=== PATIENT | male | born 1995 | race Caucasian/White ===

== ENCOUNTER 2023-09-22 19:39 | Emergency (ER) | payer OTHER, SELFPAY ==
[2023-09-22 19:40] VITALS: BP 149/68; PULSE 55; RESP 18; TEMP 36.8; O2SAT 100; BMI 29.2
--- NOTE | 2023-09-22 20:15 | RAD_ITS ---
INDICATION: Back pain EXAMINATION/TECHNIQUE: X-RAY - XR Spine Lumbar 2 or 3 Views COMPARISON: No relevant prior comparison study available FINDINGS: VERTEBRAE: Preserved vertebral body height. No fracture. No spondylolisthesis. Preservation of the normal lumbar lordosis. No significant facet arthropathy. DISCS: Disc spaces are maintained. INCLUDED ABDOMEN: Included bowel gas pattern is non-obstructive. RAD/Lumbar Spine 2 or 3 Views IMPRESSION: No evidence of lumbar spinal fracture or spondylolisthesis. Electronically Signed: Opal Valerio MD at 20:56 EST ,
--- NOTE | 2023-09-22 20:15 | EDS_ITS ---
HPI History of Present Illness Chief Complaint: Back Narrative Narrative: 28-year-old male who denies significant past medical history presents with back pain back in June, almost 3 months ago. He states that before he would have twinges of pain, then had a period of a few days where he had back pain, but that was more to the left of his spine. Since then, he has had a strange numbness of his bilateral feet that has been intermittent. He states that 1 step before them being numb. However, it is not occurring now. He denies any back pain. No fevers or chills, no nausea or vomiting, no saddle anesthesia, but states that he lost control of his bladder twice today. When asked what he meant by this, he states it was as if a small stream had come out twice today. While he was waiting in triage, he has been able to hold his urine. He states it is not as if he lost control and did not have a sensation that he had urinated. He denies any problems with his bowels. He and his went to urgent care, and were told that they should come to the emergency department w ith concern for cauda equina. [facility] Medical History Hypercholesteremia Home Medications NK 09/22/23 [History Last Taken Unknown] Allergy/AdvReac Type Severity Reaction Status Date / Time No Known Allergies Allergy Verified 09/22/23 19:40 Social History Smoking Status: Never smoker ROS ROS ED ROS Narrative Constitutional: No fever, no chills. HEENT: No sore throat. No neck pain. No loss of vision. No rhinorrhea. Cardiovascular: No chest pain. No palpitations. No pedal edema. Respiratory: No cough, no shortness of breath. Abdominal: No abdominal pain. No nausea. No vomiting. Genitourinary: No dysuria. No hematuria. Musculoskeletal: No myalgias. No arthralgias. No back pain currently. Neurologic: No headaches. No dizziness. No lightheadedness. Intermittent numbness of both feet, not present currently. No saddle anesthesia. Skin: No rash. No change in color. Psychiatric: No depression. No anxiety. EXAM Physical Exam Narrative Exam Narrative: Afebrile. Vital signs noted. HEENT: Normocephalic. Atraumatic. PERRL, EOMI. Neck soft and supple. No point tenderness or step off. Cardiovascular: Regular rate and rhythm. No murmurs, rubs, or gallops appreciated. Respiratory: No tachypnea. Lungs clear to auscultation bilaterally. Gastrointestinal: Abdomen soft, nontender, with normoactive bowel sounds. No rebound or guarding. Neurological: Awake. Alert. Nonfocal, nonlateralizing. Ambulatory in ED. Able to transfer without difficulty. Straight leg raising negative bilaterally. DTRs equal and symmetric. EHL intact bilaterally. Skin: No rash. Normal color. No pallor. Musculoskeletal: No pedal edema. Full range of motion extremities. Able to squat and stand without difficulty. Const Vital Signs: 09/22/23 19:40 09/22/23 20:47 Temperature 98.2 F 98.5 F Temperature Source Temporal Pulse Rate 55 L 83 Respiratory Rate 18 16 Blood Pressure 149/68 H 143/66 H Blood Pressure Mean 95 91 Pulse Ox 100 99 Oxygen Delivery Method Room Air MDM MDM MDM Narrative Medical decision making narrative: There are no signs of cauda equina currently. He is not having back pain or paresthesias of his feet. I do feel that his small amount of loss of bladder control may have been slight leakage from overflow incontinence. Regardless, he is symptom-free currently. X-rays of the lumbar spine and 3 views were obtained and interpreted by myself independently which show no evidence of an acute fracture. I reviewed the radiology report which confirms my independent interpretation. Urinalysis is negative for infection I do not feel antibiotics are indicated. There is no glucose so I have no concern for diabetic neuropathy. I feel that he can be discharged to have outpatient testing done by primary care provider. He and his were reassured. I do not feel he requires an emergent MRI as well. He is able to ambulate without difficulty. Disposition is discharged home in stable condition. History & Record Review Additional record(s) reviewed:: No prior records Lab Data Attestation: I reviewed the patient's lab results. Labs: Laboratory Results - last 24 hr 09/22/23 20:11 Urine Color Yellow Urine Clarity Clear Urine pH 6.5 Ur Specific [place] 1.010 Urine Protein Negative Urine Glucose (UA) Normal Urine Ketones Negative Urine Occult Blood Negative Urine Nitrite Negative Urine Bilirubin Negative Urine Urobilinogen Normal Ur Leukocyte Esterase Negative Urine RBC 0 SEEN Urine WBC 0 SEEN Ur Squamous Epith Cells 0 SEEN Urine Bacteria 0 SEEN Urine Mucus 0 SEEN Radiography Diagnostic Testing: Clinical Impression(s) from Imaging Studies Lumbar Spine X-Ray 09/22/23 20:15 IMPRESSION: No evidence of lumbar spinal fracture or spondylolisthesis. Electronically Signed: Opal Valerio MD at 20:56 EST , Discharge Plan Triage Chief Complaint: Back ED Provider: Hernan Lockwood Dx/Rx/DC Orders Clinical Impression: Back pain, Paresthesia of both feet Instructions: ED Back Pain (Acute or Chronic), ED Screening Exam Medical Non urgent, ED Paraesthesias Prescriptions: No Action NK Primary Care Provider: Care Physician,No Primary Referrals: Shaheen Crawford MD [Med Staff - Active Staff] - As Needed NOT,DEFINED [Non-Staff] - Disposition Disposition: Home, Self Care Discharge Date/Time: 09/22/23 20:51
[2023-09-22 20:21] LABS: Bacteria 0 SEEN /hpf (None Seen); Mucous, Urine 0 SEEN /hpf (<or=2+); Red Blood Cells-Urine 0 SEEN /hpf (0-5); Squamous Epithelial Cells - UA 0 SEEN /hpf (0-5); White Blood Cells 0 SEEN /hpf (0-5)
[2023-09-22 20:22] LABS: Color, Urine Yellow (Yellow); Glucose, Dipstick Normal (Normal); Ketone-Dipstick Negative (Negative); Leukocyte Esterase-Dipstick Negative /ul (Negative); Nitrite-Dipstick Negative (Negative); Occult Blood-Urine Negative /ul (Negative); Protein-Dipstick Negative (Negative); Urine Bilirubin Dipstick Negative (Negative); Urine Clarity Clear (Clear); Urine Urobilinogen Normal (Normal); Urine pH 6.5 (5.0 - 8.0)
[2023-09-22 20:47] VITALS: BP 143/66; PULSE 83; RESP 16; TEMP 36.9; O2SAT 99
== END 2023-09-22 20:51 | disposition home or self-care (01) ==
PROVIDERS: Emergency Provider Emergency Medicine; Visit Provider Emergency Medicine
DX: M54.9 Dorsalgia, unspecified (principal); R20.2 Paresthesia of skin
CPT/HCPCS: 72100; 81001; 99282

== ENCOUNTER → 2025-02-12 | Outpatient (CLI) | payer BC, SELFPAY ==
--- OUTSIDE RECORDS SUMMARY | 2025-02-12 08:48 | XMS RPT_ITS | CCD ---
Author Organization [facility] Care Team Providers Care Edge Bander Hand Name Role Phone MAST POKER PROP PLAYER-STEEPING PRESS TENDER, KAILYN Primary Care Physician [phone] Mast STEEPING PRESS TENDER, Kailyn Primary Care Provider [phone] Mast STEEPING PRESS TENDER, Kailyn Primary Care Provider [phone] MAST POKER PROP PLAYER-STEEPING PRESS TENDER, KAILYN Primary Care Unavailleo PLZAA MD, DR SHOSHANA Bettencourt Attending Unavailable MAST POKER PROP PLAYER-STEEPING PRESS TENDER, KAILYN Primary Care Unavailabl e MAST POKER PROP PLAYER-STEEPING PRESS TENDER, KAILYN Attending Unavailabl e MAST POKER PROP PLAYER-STEEPING PRESS TENDER, KAILYN Primary Care Unavailabl ramses PLAZA MD, DR SHOSHANA Bettencourt Attending Unavailable MAST POKER PROP PLAYER-STEEPING PRESS TENDER, KAILYN Primary Care Unavailabl e JENNIFER PATE, DR MALIK Attending Unavailable MELA MARTIN, DR SHOSHANA Bettencourt Attending Unavailable MAST POKER PROP PLAYER-STEEPING PRESS TENDER, KAILYN Primary Care Unavailabl e MAST POKER PROP PLAYER-STEEPING PRESS TENDER, KAILYN Primary Care Unavailabl e MAST POKER PROP PLAYER-STEEPING PRESS TENDER, KAILYN Attending Unavailabl e RCYSTAL PATE, DR BAMBI Phan Attending Unavailabl e MAST POKER PROP PLAYER-STEEPING PRESS TENDER, KAILYN Primary Care Unavailabl e MAST POKER PROP PLAYER-STEEPING PRESS TENDER, KAILYN Primary Care Unavailabl e MAST POKER PROP PLAYER-STEEPING PRESS TENDER, KAILYN Attending Unavailabl e MAST, KAILYN Primary Care Unavailable MAST, KAILYN Primary Care Unavailable CHASTITY CRUZ Referring Unavailable [place] ALFARO Referring Unavail able MAST, KAILYN Primary Care Unavailable CHASTITY CRUZ Attending Unavailable MAST, KAILYN Primary Care Unavailable MAST, KAILYN Primary Care Unavailable MAST, KAILYN Primary Care Unavailable CHASTITY CRUZ Referring Unavailable MAST, KAILYN Primary Care Unavailable CHASTITY CRUZ Attending Unavailable MAST, KAILYN Primary Care Unavailable CHASTITY CRUZ Referring Unavailable MAST POKER PROP PLAYER-STEEPING PRESS TENDER, KAILYN Attending Unavailabl e MAST POKER PROP PLAYER-STEEPING PRESS TENDER, KAILYN Primary Care Unavailabl e Jeison Gibbs Attending Unavailable Care Physician, No Primary Primary Care Unava ilable Medications Current Medications Medication Drug Class(es) Dates Sig (Normalized) Sig (Original) [id number] actuat albuterol 0.09 mg/actuat metered dose inhaler (1 source) beta2-Adrenergic Agonist Start: 09-30-2024 take 2 puff(s) by inhalation every four hours as needed for wheezing albuterol HFA (PROVENTIL HFA, VENTOLIN HFA) 90 mcg/actuation inhaler Indications: Viral bronchitis Inhale 2 Puffs as instructed every 4 hours as needed for wheezing/shortnes s of breath. 1 Each 09/30/2024 Active Start: 09-30-2024 take 2 puff(s) by in halation every four hours as needed for wheezing albuterol HFA (PROVENTIL HFA, VENTOLIN HFA) 90 mcg/actuation inhaler Indications: Viral bronchitis Inhale 2 Puffs as instructed every 4 hours as needed for wheezing/shortness of breath. 1 Each 09/30/2024 Active Allergy Relief (1 source) Start: 05-24-2024 take 1 mg by mouth once daily Allergy Relief mg =, Oral, qDay, 0 Refill(s) Start Date: 05/24/24 Status: Ordered Repeat number: 1 B-12 1000 mcg oral tablet (1 source) Start: 10-28-2023 take 1 ug by mouth once daily B-12 1000 mcg oral tablet mcg = tab(s), Oral, qDay, 0 Refill(s) Start Date: 10/28/23 Status: Ordered brompheniramine maleate 0.4 mg/ml / dextromethorphan hydrobromide 2 mg/ml / pseudoephedrine hydrochloride 6 mg/ml oral solution (2 sources) alpha-Adrenergic Agonist, Uncompetitive M-wyjjus-X-asparta te Receptor Antagonist, Sigma-1 Agonist Start: 08-23-2024 take 10 mL by mouth every six hours as needed Brompheniramine- Pseudoeph-DM (BROMFED DM) 2-30-10 mg/5 mL syrup Take 10 mL by mouth four times a day as needed. 200 mL 08/23/2024 Active Folate Forte (1 source) Start: 10-28-2023 Folate Forte Oral, qDay, 0 Refill(s) Start Date: 10/28/23 Status: Ordered Inhalational Spacing Device (1 source) Start: 09-30-2024 End: 09-30-2024 Inhalational Spacing Device Indications: Viral bronchitis 1 Device one time only for 1 dose. 1 Each 09/30/2024 09/30/2024 Active predniSONE 10 mg oral tablet (1 source) Start: 09-30-2024 End: 10-09-2024 predniSONE (DELTASONE) 10 mg tablet Indications: Viral bronchitis Take 4 tabs daily for 3 days, then 2 tabs daily for 3 days, then 1 tab daily for 3 days with food. 21 tablet 09/30/2024 10/09/2024 Active Symbicort 80 mcg-4.5 mcg/inh Inhaler (1 source) Start: 11-09-2024 take 1 dose by inhalation twice daily Symbicort 80 mcg-4.5 mcg/inh Inhaler Dose = 2 puff(s), Inhalation, BID, # 6.9 gram(s), 0 Refill(s), Pharmacy: [facility] #[id number], 178, cm, 10/15/24 7:39:00 EDT, Height, kg, 10/15/24 7:39:00 EDT, Dosing Weight Start Date: 11/09/24 Status: Ordered Quantity: 6.9 Unit: g Repeat number: 1 Completed/Discontinued Medications Medication Drug Class(es) Dates Sig (Normalized) Sig (Original) Albuterol (Eqv-Proventil HFA) 90 mcg/inh inhalation aerosol (1 source) Start: 10-15-2024 End: 10-22-2024 take 2 doses by inhalation every six hours as needed for wheezing Albuterol (Eqv-Proventil HFA) 90 mcg/inh inhalation aerosol Dose : 180 mcg = 2 inh, Inhalation, q6hr, PRN as needed for shortness of breath or wheezing, # 6.7 gram(s), 0 Refill(s), Pharmacy: [facility] #[id number], 178, cm, 10/15/24 7:39:00 EDT, Height, kg, 10/15/24 7:39:00 EDT, Dosing Weight Start Date: 10/15/24 Stop Date: 10/22/24 Status: Ordered Quantity: 6.7 Unit: g Repeat number: 1 iv contrast (will be provided with radiology test) (1 source) Start: 10-31-2023 End: 11-01-2023 inject 1 dose intravenously once iv contrast (will be provided with radiology test) Indications: Facial weakness , Tingling MRI Brain Inject, intravenously, once for 1 dose.No IV access, insert saline lock prior to beginning of sedation, infusion, injection of imaging exam.Discontinue saline lock post exam. If Pt. has a central line or IVAD, may access for administration according to line specific nursing protocol.Once exam is complete flush line and de-access according to line specific nursing protocol in the MR contrast administration guidelines link 1 Each 0 10/31/2023 11/01/2023 Comment on above: MRI Brain Inject, intravenously, once fo r 1 dose.No IV access, insert saline lock prior to beginning of sedation, infusion, injection of imaging exam.Discontinue saline lock post exam. If Pt. has a central line or IVAD, may access for administration according to line specific nursing protocol.Once exam is complete flush line and de-access according to line specific nursing protocol in the MR contrast administration guidelines link Problems Active Problems Problem Classification Problem Date Documented Da te Episodic/Chronic Abdominal pain (9 sources) Right upper quadrant pain; Translations: [Unspecified abdominal pain] Onset: 11-27-2023 10-28-2023 Episodic Acute bronchitis (1 source) Viral bronchitis; Translations: [Acute bronchitis due to other specified organisms] 09-30-2024 Episodic Asthma (1 source) Unspecified asthma, uncomplicated; Translations: [Unspecified asthma, uncomplicated] Onset: 02-07-2025 Chronic Cardiac dysrhythmias (9 sources) Bradycardia 10-14-2023 Episodic Conduction disorders (1 source) Right bundle branch block 10-28-2023 Chronic Disorders of lipid metabolism (11 sources) Hyperlipidemia; Translations: [Hyperlipidemia, unspecified] Onset: 10-14-2023 10-14-2023 Chronic Gastrointestinal hemorrhage (1 source) Hematochezia; Translations: [Melena] 11-17-2023 Episodic Genitourinary symptoms and ill-defined conditions (2 sources) Dysuria; Translations: [Dysuria] Onset: 11-27-2023 Episodic Hemorrhoids (1 source) Hemorrhoids; Translations: [Unspecified hemorrhoids] 11-17-2023 Episodic Intestinal infection (11 sources) Food poisoning; Translations: [Bacterial foodborne intoxication, unspecified] Onset: 10-14-2023 10-14-2023 Episodic Malaise and fatigue (11 sources) Fatigue; Translations: [Other fatigue] Onset: 10-14-2023 10-14-2023 Episodic Other and ill-defined heart disease (6 sources) Right ventricular hypertrophy 11-14-2023 Chronic Other connective tissue disease (12 sources) Weakness of face muscles; Translations: [Facial weakness] 10-14-2023 Episodic Other infections; including parasitic (1 source) Post-infectious disorder 10-15-2024 Chronic Other injuries and conditions due to external causes (1 source) Unspecified foreign body in esophagus causing other injury, initial encounter; Translations: [Unspecified foreign body in esophagus causing other injury, initial encounter] Onset: 01-25-2023 Episodic Other male genital disorders (1 source) Pain in penis; Translations: [Other specified disorders of penis] 11-17-2023 Chronic Other nervous system disorders (2 sources) Demyelinating disease of central nervous system; Translations: [Demyelinating disease of central nervous system, unspecified] 11-02-2023 Chronic Other nervous system disorders (1 source) Demyelinating disease of central nervous system, unspecified; Translations: [Demyelinating disease of central nervous system (HCC)] Onset: 11-27-2023 Chronic Other nervous system disorders (9 sources) Numbness 10-14-2023 Episodic Other nervous system disorders (11 sources) Paresthesia; Translations: [Paresthesia of skin] Onset: 10-23-2023 Episodic Other screening for suspected conditions (not mental disorders or infectious disease) (2 sources) Encounter for screening for lipoid disorders; Translations: [Encounter for screening for diabetes mellitus] Onset: 02-07-2025 Episodic Other upper respiratory infections (3 sources) Sore throat symptom; Translations: [Acute pharyngitis, unspecified] 08-23-2024 Episodic Transient cerebral ischemia (3 sources) Cerebral ischemia; Translations: [Transient cerebral ischemic attack, unspecified] Onset: 11-27-2023 10-31-2023 Chronic Unclassified (16 sources) Patient encounter status 10-14-2023 Past or Other Problems Problem Classification Problem Date Documented Da te Episodic/Chronic Nonspecific chest pain (3 sources) Tight chest; Translations: [Other chest pain] Onset: 01-02-2024 10-31-2023 Episodic Other connective tissue disease (3 sources) Facial weakness; Translations: [Facial weakness] Onset: 10-14-2023 Episodic Other nervous system disorders (3 sources) Paresthesia of skin; Translations: [Paresthesia of skin] Onset: 10-28-2023 Episodic Other nervous system disorders (2 sources) Anesthesia of skin; Translations: [Anesthesia of skin] Onset: 10-14-2023 Episodic Results Test Name Value Interpretation Reference Range Facility CT THORAX W/O CONTRASTon CT THORAX W/O CONTRAST ADDENDUM ADDENDUM: I have been asked to comment on absent pericardium. This is difficult on noncontrast CT. The pericardium is difficult to identify well at the region of the cardiac apex and left heart border. Cardiac chamber assessment is difficult although there does appear to be some bulging at the left lateral cardiac margin. Pericardium anteriorly and toward the right does appear visible. 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 This should be further evaluated more optimally with cardiac MRI. Interpreted by: Arley Salgado MD Preliminary Report By: Arley Salgado MD Electronically signed By Arley Salgado MD Dictated Date: 11/12/2024 10:13:13 AM Prelim Date: 11/12/2024 10:20:08 AM Sign Date: 11/12/2024 10:20:08 AM Ordering Provider: SHOSHANA PLAZA ORIGINAL EXAMINATION: CT OF THE CHEST WITHOUT CONTRAST 02/03/2024 9:53 am TECHNIQUE: CT of the chest was performed without the administration of intravenous contrast. Multiplanar reformatted images are provided for review. Automated exposure control, iterative reconstruction, and/or weight based adjustment of the mA/kV was utilized to reduce the radiation dose to as low as reasonably achievable. COMPARISON: None. HISTORY: ORDERING SYSTEM PROVIDED HISTORY: Reason for Exam: cardiomyopathy FINDINGS: No acute osseous abnormality is visible. No acute osseous abnormality. 4 mm nodule is evident within the left lower lobe. No other nodule is identified and there is no focal consolidation. No pleural fluid seen. There is pre-vascular abnormal somewhat rounded soft tissue present measuring 2.5 cm in size. This is presumably a thymic abnormality. No calcification is evident within the lesion. No gross mediastinal adenopathy within the constraints of a noncontrast exam. No additional contributory abnormality seen. IMPRESSION: 1. Pre-vascular/thymic lesion. Nodular hyperplasia and thymoma are considerations. The precise nature of the abnormality is uncertain. Neoplasm is certainly not excluded. 2. Small left lower lobe pulmonary nodule of uncertain significance in a patient of this age. Follow-up as clinically appropriate. Interpreted by: Arley Salgado MD Preliminary Report By: Arley Salgado MD Electronically signed By Arley Salgado MD Dictated Date: 02/03/2024 1:45:34 PM Prelim Date: 02/03/2024 1:49:14 PM Sign Date: 02/03/2024 1:49:14 PM Ordering Provider: SHOSHANA Sanz [facility] CNOVon 09-30-2024 CNOV Office Visit ([facility] ) BERYL LINCOLN ([id number]) 1995 Date Time Provider Department 09/30/24 7:45 AM TAMMY LEMUS [facility] During your visit today, we recorded the following information about you: Temperature Pulse Respiration Blood pressure 97.3 degrees 55/minute 18/minute 121/77 Weight 94.2 kg Tammy Lemus APRN.[facility] 09/30/2024 8:21 AM Signed [facility] Subjective Beryl Lincoln is a 29 year old male. Cough Associated symptoms include shortness of breath. Pertinent negatives include no chest pain, no chills, no ear pain, no headaches, no sore throat and no wheezing. Beryl Lincoln is a 29 year old male who presents with a cough, chest congestion, and feeling short of breath for the past 3 days. He was diagnosed with the flu and had a high fever and chills for one day. He has felt better but cough persists and chest feels tight. He has taken tylenol and ibuprofen at home. Review of Systems Constitutional: Negative for chills, fatigue and fever. HENT: Negative for ear discharge, ear pain, sinus pain and sore throat. Respiratory: Positive for cough and shortness of breath. Negative for wheezing. Cardiovascular: Negative for chest pain. Neurological: Negative for headaches. Objective BP 121/77 Pulse (!) 55 Temp 36.3 ?C (97.3 ?F) Resp 18 Wt 94.2 kg (207 lb 10.8 oz) SpO2 97% BMI 29.80 kg/m? No past medical history on file. No past surgical history on file. ALLERGIES Patient has no known allergies. MEDICATIONS predniSONE (DELTASONE) 10 mg tablet Take 4 tabs daily for 3 days, then 2 tabs daily for 3 days, then 1 tab daily for 3 days with food. albuterol HFA (PROVENTIL HFA, VENTOLIN HFA) 90 mcg/actuation inhaler Inhale 2 Puffs as instructed every 4 hours as needed for wheezing/shortness of breath. Inhalational Spacing Device 1 Device one time only for 1 dose. Brompheniramine-Pseudoe ph-DM (BROMFED DM) 2-30-10 mg/5 mL syrup Take 10 mL by mouth four times a day as needed. (Patient not taking: Reported on 09/30/2024) No family history on file. Social History Tobacco Use Smoking status: Never Smokeless tobacco: Never Substance Use Topics Drug use: Never Physical Exam Vitals and nursing note reviewed. Constitutional: General: He is not in acute distress. Appearance: Normal appearance. He is not ill-appearing. HENT: Right Ear: Tympanic membrane, ear canal and external ear normal. Left Ear: Tympanic membrane, ear canal and external ear normal. Nose: Nose normal. Mouth/Throat: Mouth: Mucous membranes are moist. Pharynx: Oropharynx is clear. No posterior oropharyngeal erythema. Cardiovascular: Rate and Rhythm: Normal rate and regular rhythm. Heart sounds: Normal heart sounds. Pulmonary: Effort: Pulmonary effort is normal. No respiratory distress. Breath sounds: Wheezing (few, scattered) present. No rales. Skin: General: Skin is warm and dry. Findings: No erythema or rash. Neurological: Mental Status: He is alert. Assessment and Plan Differential Diagnoses - bronchitis is more likely for the following reason(s): suggested by HANDP - pneumonia is less likely for the following reason(s): HANDP not suggestive Additional Tests or Interventions The following testing was considered but ultimately not selected after discussion with patient/family: xray The following medication(s) were considered but not ordered: antibiotics Disposition The patient was discharged. OTC Medications were advised: Procedures ASSESSMENT/PLAN: 1. Viral bronchitis - ICD9: 466.0, ICD10: J20.8 - PREDNISONE 10 MG TABLET - ALBUTEROL SULFATE HFA 90 MCG/ACTUATION AEROSOL INHALER - INHALATIONAL SPACING DEVICE - continue tylenol/ibuprofen as needed. - Follow-up with your PCP in 3-5 days if symptoms have not improved or sooner if symptoms worsen - Discussed red flags and need for immediate medical evaluation if any occur. - Discussed supportive care treatment with fluids, rest and analgesia. - Discussed expected course of illness Tammy Lemus APRN.Tammy Bella APRN.CNP 09/30/2024 8:21 AM Signed ASSESSMENT/PLAN: 1. Viral bronchitis - ICD9: 466.0, ICD10: J20.8 - PREDNISONE 10 MG TABLET - ALBUTEROL SULFATE HFA 90 MCG/ACTUATION AEROSOL INHALER - INHALATIONAL SPACING DEVICE - continue tylenol/ibuprofen as needed. - Follow-up with your PCP in 3-5 days if symptoms have not improved or sooner if symptoms worsen - Discussed red flags and need for immediate medical evaluation if any occur. - Discussed supportive care treatment with fluids, rest and analgesia. - Discussed expected course of illness Tammy Lemus APRN.CNP [facility] [address] [place], [place] [address] Emergency Department Diagnosis: Assessment ACUTE BRONCHITIS: You have acute bronchitis. This (more content not included)... Normal [facility] CNOVon 08-23-2024 CNOV Office Visit ([facility] ) BERYL LINCOLN ([id number]) 1995 M Date Time Provider Department 08/23/24 9:15 AM RAYSHAWN VEGAS [facility] During your visit today, we recorded the following information about you: Temperature Pulse Respiration Blood pressure 99.8 degrees 117/minute 16/minute 112/76 Weight 94.4 kg Rayshawn Vegas PA 08/23/2024 9:39 AM Signed This note was created using Clarity. Car Lincoln is a 29 year old male. HPI 29-year-old male presents for sore throat, congestion, cough, chills, fever x 3 days. Patient states he has not actually taken his temperature at home, but has felt feverish. He has had a productive cough, nasal congestion, sore throat for the past 3 days. No vomiting or diarrhea. Still able to eat and drink. Has used cough drops and ibuprofen for symptom treatment. He took ibuprofen last this morning. No sick contacts that he is aware of. No other complaint. History reviewed. No pertinent past medical history. No past surgical history on file. ALLERGIES Patient has no known allergies. MEDICATIONS No prescriptions on file. No family history on file. Social History Tobacco Use Smoking status: Never Smokeless tobacco: Never Substance Use Topics Drug use: Never Review of Systems Constitutional: Positive for chills and fever. HENT: Positive for congestion and sore throat. Respiratory: Positive for cough. Negative for shortness of breath. Gastrointestinal: Negative for diarrhea and vomiting. Objective BP 112/76 Pulse 117 Temp 37.7 ?C (99.8 ?F) (Tympanic) Resp 16 Wt 94.4 kg (208 lb 1.8 oz) SpO2 95% BMI 29.86 kg/m? Physical Exam Vitals and nursing note reviewed. Constitutional: General: He is not in acute distress. Appearance: Normal appearance. He is not toxic-appearing. HENT: Right Ear: Tympanic membrane and ear canal normal. Left Ear: Tympanic membrane and ear canal normal. Nose: Congestion present. Mouth/Throat: Mouth: Mucous membranes are moist. Pharynx: Posterior oropharyngeal erythema present. Tonsils: 2+ on the right. 2+ on the left. Eyes: Conjunctiva/sclera: Conjunctivae normal. Cardiovascular: Rate and Rhythm: Normal rate and regular rhythm. Pulmonary: Effort: Pulmonary effort is normal. Breath sounds: Normal breath sounds. No wheezing, rhonchi or rales. Skin: General: Skin is warm and dry. Neurological: Mental Status: He is alert. Assessment and Plan ASSESSMENT/PLAN: 1. Sore throat - ICD9: 462, ICD10: J02.9 (primary diagnosis) - suspect viral - Group A strep molecular testing negative - Discussed supportive care treatment with fluids, rest and analgesia. - The patient may also use warm salt water gargles, throat lozenges and/or OTC throat spray as needed. - STREP A MOLECULAR (POC) 2. URI, acute - ICD9: 465.9, ICD10: J06.9 - Discussed viral etiology and rationale for treatment. - Symptomatic treatment with prn analgesia - Supportive care with fluids and rest - RX bromfed - declines viral testing Diagnosis and treatment plan were discussed and questions were answered to the patient's satisfaction. Pt acknowledged understanding of concepts and follow up plan. Specific signs and symptoms that would indicate the need for higher level of care were discussed in detail warranting prompt ER evaluation. PAMELLA Potter Allergies As of Date: 08/23/2024 (No Known Allergies) Date Reviewed: 08/23/2024 Reviewed by: Suzan Dang LPN - Fully Assessed Reason for Visit: Cough [28] Cmt: Cough, SAMANO, ST and congestion x 3 days Primary Visit Diagnosis:Sore throat [J02.9] Other Visit Diagnosis:URI, acute [J06.9] Order(s):STREP A MOLECULAR (POC) [2839511] Order #: [id number]. #:[id number] Brompheniramine-Pseudoe ph-DM (BROMFED DM) 2-30-10 mg/5 mL syrupTake 10 mL by mouth four times a day as needed.Disp: 200 mLRfl: 0 Prescriptions as of 08/23/2024 - Brompheniramine-Pseudoe ph-DM (BROMFED DM) 2-30-10 mg/5 mL syrup Take 10 mL by mouth four times a day as needed. Problem List As Of Date: 08/23/2024 (None) Prescriptions ordered this encounter Disp Refills Start End BROMPHENIRAMINE-PSEUDOE PHEDRINE-DM 2* 200 * 0 08/23/2024 Route: ORAL Sig: Take 10 mL by mouth four times a day as needed. Letter Text Encounter Status:Closed by ELIANE VEGASGILMERSHA Mccollum on 08/23/24 Normal [facility] STREP A MOLECULAR (POC)on Procedural Control Valid [facility] Strep A (POCT) Negative Negative [facility] CARDIAC MORPHOLOGY AND F [facility] W+W/O CONTon 01-18-2024 MRI CARDIAC MORPHOLOGY AND FUNC W+W/O CONT ORIGINAL Patient Name: Beryl Lincoln Medical Record Number: : Weight: lbs BSA: Protocols: T2w/T1w axial MARIO, Cine SSFP (FIESTA), T2 STIR, LGE Contrast: 34 cc Multihance Findings: Measurement Value Reference Range Left Ventricle LV Max wall thickness 0.9 cm (0.7-1.1 cm) (Anterior Wall) LVEDV: 265mL LVESV: 122mL LVEF: 54% RVEDV: 290mL RVEDV/BSA: 139ml/m2 RVEF: 53% Vessels Ascending Aorta 2.6 cm (1.9-3.7 cm) Descending Aorta 1.9 (1.5-2.8 cm) Pulmonary Artery 2.6 (2-2.7 cm) Pericardium Pericardial Thickness - normal (see below for further details) Pericardial Effusion - Trivial Atria Right Atrial Length 5.5 (3-5 cm) Left Atrial Length (2 Chamber) 5.4 cm (3-5.1 cm) Origins and proximal course of the left main and right coronary arteries are not well-visualized. Normal ascending aorta, descending aorta, and main pulmonary artery diameters. Regurgitation: Nothing more than mild seen. Extra-cardiac findings: Sequences obtained are designed for cardiac structures and not sensitive for extracardiac findings. Left ventricle shows visually normal LV function, LV chamber is mildly dilated. Although the RV is dilated and meets one major criteria for ARVC (size), it does not seem to be ARVC. There is a significant dislocation of the heart towards the left hemithorax. 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 T2 STIR images do not show evidence of significant myocardial edema. LGE: No significant seen. Impression: 1. 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 Consider Cardiac CT for further evaluation. 2. Mildly dilated RV with normal systolic function, see above for details. Interpreted By: Beltran Zhao Preliminary Report By: Beltran Zhao Electronically Signed By: Beltran Zhao Dictated Date: 01/17/2024 4:18:11 PM Prelim Date: 01/17/2024 4:54:21 PM Sign Date: 01/18/2024 9:32:16 PM Ordering Provider:[facility] ([place]) VITAMIN B6/PYRIDOXINon 01-12 VITAMIN B6 167.3 nmol/L High 20.0-125.0 [facility] Comment on above: Order Comment: Sydni downs Type: BLOOD SPECIMENOrdering Facility: [facility] Address: [address] [place] [address] Result Comment: INTE RPRETIVE INFORMATION: Vitamin B6 (Pyridoxal 5-Phosphate) Pyridoxal 5'-phosphate measured in a specimen collected following an 8-hour or overnight fast accurately indicates vitamin B6 nutritional status. Non-fasting specimen concentration reflects recent vitamin intake. This test was developed and its performance characteristics determined by [facility]. It has not been cleared or approved by the US Food and Drug Administration. This test was performed in a CLIA certified laboratory and is intended for clinical purposes. Performed By: [facility] [address] [place] [address] It Architecture Consultant: Akhil Webb MD, PhD CLIA Number: [id number] Performed By: #### V ITB6 ####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 Lincoln presents today for a follow-up visit. Per his previous visit on 10/31/23: R29.810 Facial weakness R07.89 Chest tightness R20.2 Tingling Comment: Pt presenting today for paresthesias. He reports that symptoms began roughly 2 to 3 months ago at which time he was lifting weights when he felt a tingling sensation throughout his face. Symptoms returned roughly 1 month ago and were more severe. Tingling presented throughout his face as well as in his hands and he experienced facial weakness. The tingling radiated to his chest at which time he felt a tight sensation. This progressed to involve weakness of both hands. EMS was called but he did not present to the ED as symptoms resolved. However, this past he then experienced facial weakness and tingling in his hands and stomach while driving. He presented to the ED (outside [facility] and workup not available). The following day he again experienced similar symptoms while driving and was taken to [facility] ED. CT brain, blood work, EKG, CXR were all completed and unremarkable. He has had follow-up with his PCP who ordered lab work which he believes included a B12 and folate level. Exam today in office is essentially unremarkable with exception of minimal asymmetry to L mouth. No sensory deficit, reflex abnormality noted. At this time etiology of symptoms is uncertain. Will proceed with further workup and plan as follows: -MRI brain WO/W valuate for central process contributing to facial weakness and tingling including demyelinating disease or CN abnormality. -Additional lab work including those listed below to evaluate for vitamin deficiency, autoimmune ds, thyroid disorder. -EEG to rule out seizure activity given tingling and facial weakness. -Extended hospital monitor to evaluate for arrhythmia. -Pt will fax or MyChart lab results completed by his PCP for review. He will follow-up after testing is complete or sooner should new or changing symptoms occur. Since October things have improved. No further episodes that have been unprompted. No episodes when driving. Did note some symptoms one month ago when lifting. Was trying to lift heavy. Did note some tingling at that time but no facial weakness and symptoms resolved quickly. Went to the gym earlier this week and didn't notice anything. No other new or changing symptoms. No concern by cardiology for bradycardia. Had echo. Will be ruling out cardiomyopathy. Has MRI of heart scheduled. Cut out 1[employer] energy drinks two months ago; had been drinking one to two per day. Had still been using energy drink packets from [employer] but has also cut these out as well. BP usually around 120/70's-60's. No past medical history on file. No past surgical history on file. No current outpatient medications on file prior to visit. No current facility-administered medications on file prior to visit. Social History Tobacco Use Smoking status: Never Smokeless tobacco: Never Substance Use Topics Drug use: Never ALLERGIES No Known Allergies Review of Systems: Cardiopulmonary: denies chest pain, palpitations Respiratory: denies shortness of breath GI/: denies recent nausea, vomiting, diarrhea, constipation, incontinence Musculoskeletal: denies weakness Back/spine: denies + low back or cervical pains Neuro: denies tremors, loss of feeling, dizziness, seizure, blackout, paresthesia, facial paresthesia, facial weakness, difficulty in speech, slurring of words, dysarthria, dysphagia, memory loss, headache, vision changes, loss of hearing Physical Exam: 01/02/24 0726 BP: 112/68 BP Site: Left Arm BP Position: Sitting BP Cuff Size: Regular Adult Pulse: (!) 55 SpO2: 100% Weight: 89.4 kg (197 lb 1.5 oz) Height: 177.8 cm (5' 10) Patient is alert and in no distress. Dress is appropriate. Mood is appropriate Breathing appears regular and unstressed Neurologic examination: Cognitively intact. No deficits. No formal MOCA performed. CN: Pupils equal and reactive to light, extraocular movements intact with no nystagmus, face is symmetric with no facial droop, facial sensation intact bilaterally to light touch. V1-3, hearing intact bilaterally, tongue is midline with no deviation, shoulder shrug is symmetric. Motor Examination: Right Upper Extremity: (of 5) Left Upper Extremity: (of 5) Shoulder Abduction: Deltoid (Ax/C5) 5 Shoulder Abduction 5 Elbow Flexion: Biceps (MC/R an (more content not included)... Normal [facility] CTPCRon 11-28-2023 C. trachomatis Interp Normal See CT Interp N [facility] ([place]) Comment on above: Result Comment: C. t rachomatis DNA not detected. Specimen is presumptive negative for C. trachomatis. A negative result does not preclude C. trachomatis infection because results depend on adequate specimen collection, absence of inhibitors, and sufficient DNA to be detected. See CT Interp N Performed By: #### C TPCR, NGPCR1 #### [address] [address] C.trachomatis PCR Negative Normal Negative [facility] ([place]) Comment on above: Result Comment: Christa mcmullenar (PCR) assay performed on the Amelia Nae 4800 system. Performed By: #### C TPCR, NGPCR1 #### [address] [address] Chlam Source Urine Normal [facility] ([place]) Comment on above: Performed By: #### C TPCR, NGPCR1 #### [address] [address] [id number] 11-28-2023 GC PCR Source Urine Normal [facility] ([place]) Comment on above: Performed By: #### C TPCR, NGPCR1 #### [address] [address] N. gonorrhoeae (PCR) Negative Normal Negative [facility] ([place]) Comment on above: Result Comment: Mole cular (PCR) assay performed on the Amelia Nae 4800 System. Performed By: #### C TPCR, NGPCR1 #### [address] [address] N. gonorrhoeae Interp Normal See NG Interp N [facility] ([place]) Comment on above: Result Comment: N. g onorrhoeae DNA not detected. Specimen is presumptive negative for N. gonorrhoeae. A negative result does not preclude Neisseria gonorrhoeae infection because results depend on adequate specimen collection, absence of inhibitors, and sufficient DNA to be detected. See NG Interp N Performed By: #### C TPCR, NGPCR1 #### [place] [address] LABORATORYOrdered By: Jennifer Encinas on 11-27-2023 C. trachomatis DNA MILES+probe Ql (Unsp spec) Negative 2 (11/27/23 11:11 AM) Normal Negative [facility] Comment on above: Interpretive Data: M olecular (PCR) assay performed on the Amelia Nae 4800 system. C. trachomatis DNA MILES+probe Ql (Unsp spec) C. trachomatis DNA not detected. Specimen is presumptive negative forC. trachomatis.A negative result does not preclude C. trachomatis infection becauseresults depend on adequate specimen collection, absence of inhibitors,and sufficient DNA to be detected. Normal See CT Interp N [facility] Auto Viro/Sero SS N. gonorrhoeae DNA MILES+probe Ql (Unsp spec) Negative 1 (11/27/23 11:11 AM) Normal Negative [facility]ero [facility] Comment on above: Interpretive Data: M olecular (PCR) assay performed on the Amelia Nae 4800 System. N. gonorrhoeae DNA MILES+probe Ql (Unsp spec) N. gonorrhoeae DNA not detected. Specimen is presumptive negative forN. gonorrhoeae. A negative result does not preclude Neisseria gonorrhoeaeinfection because results depend on adequate specimen collection, absenceof inhibitors, and sufficient DNA to be detected. Normal See NG Interp N [facility] Laboratory - Specimen inform ationOrdered By: Jennifer Encinas on 11-27-2023 Specimen source Nom (Unsp spec) Urine (11/27/23 11:11 AM) Normal Auto Viro/Sero SS MR Brain WO and W contrast I Von 11-27-2023 IMPRESSION: Normal MRI of the brain without and with contrast Inspector Plating: CHERI Transcribe Date/Time: Nov 27 2023 2:25P Dictated by : VICTOR HUGO MADISON MD This examination was interpreted and the report reviewed and electronically signed by: VICTOR HUGO MADISON MD on Nov 27 2023 2:27PM [facility] DIVISION OF RADIOLOGY * * *Final Report* * * DATE OF EXAM: Nov 27 2023 2:10PM [facility] 0295 - MRI BRAIN WO/W IVCON / PROCEDURE REASON: multiple diagnoses * * * * Physician Interpretation * * * * EXAMINATION: MRI BRAIN WO/W IVCON CLINICAL HISTORY: Demyelinating disease of the central nervous system. TECHNIQUE: Demyelinating protocol brain MRI without and with contrast. MQ: MRBWOW_2 Contrast: 17 mL Dotarem IV COMPARISON: None. RESULT: Acute Change: There is no evidence of restricted diffusion to suggest an acute infarct. Hemorrhage: No evidence of prior parenchymal hemorrhage on the gradient echo images. Mass Lesion/ Mass Effect: No evidence of an intracranial mass or extra-axial fluid collection. No abnormal parenchymal or leptomeningeal enhancement is noted following contrast administration. No significant mass effect. Chronic Change: The white matter is within normal limits of signal intensity for age. Parenchyma: No significant volume loss for age. The brain parenchyma is otherwise within normal limits of signal intensity and morphology. Ventricles: Normal caliber and morphology. Skull Base: Hypothalamic and pituitary region are grossly normal. Craniocervical junction is normal. No significant marrow replacement process. Vasculature: Major intracranial arterial structures, and dural venous sinuses show typical flow void, suggesting patency by spin echo criteria. Other: The visualized paranasal sinuses and mastoid air cells are clear. The orbits and extracranial soft tissues are unremarkable. DIVISION OF RADIOLOGY Provider, [facility] - 11/27/2023 * * *Final Report* * * DATE OF EXAM: Nov 27 2023 2:10PM [facility] 0295 - MRI BRAIN WO/W IVCON / PROCEDURE REASON: multiple diagnoses * * * * Physician Interpretation * * * * EXAMINATION: MRI BRAIN WO/W IVCON CLINICAL HISTORY: Demyelinating disease of the central nervous system. TECHNIQUE: Demyelinating protocol brain MRI without and with contrast. MQ: MRBWOW_2 Contrast: 17 mL Dotarem IV COMPARISON: None. RESULT: Acute Change: There is no evidence of restricted diffusion to suggest an acute infarct. Hemorrhage: No evidence of prior parenchymal hemorrhage on the gradient echo images. Mass Lesion/ Mass Effect: No evidence of an intracranial mass or extra-axial fluid collection. No abnormal parenchymal or leptomeningeal enhancement is noted following contrast administration. No significant mass effect. Chronic Change: The white matter is within normal limits of signal intensity for age. Parenchyma: No significant volume loss for age. The brain parenchyma is otherwise within normal limits of signal intensity and morphology. Ventricles: Normal caliber and morphology. Skull Base: Hypothalamic and pituitary region are grossly normal. Craniocervical junction is normal. No significant marrow replacement process. Vasculature: Major intracranial arterial structures, and dural venous sinuses show typical flow void, suggesting patency by spin echo criteria. Other: The visualized paranasal sinuses and mastoid air cells are clear. The orbits and extracranial soft tissues are unremarkable. IMPRESSION IMPRESSION: Normal MRI of the brain without and with contrast Inspector Plating: CHERI Transcribe Date/Time: Nov 27 2023 2:25P Dictated by : VICTOR HUGO MADISON MD This examination was interpreted and the report reviewed and electronically signed by: VICTOR HUGO MADISON MD on Nov 27 2023 2:27PM EST [facility] Radiology Study observation (narrative) [facility] MR Brain WO and W contrast I VOrdered By: [facility] Provider on 11-27-2023 [facility] MRI BRAIN WO/W IVCONon 11-26 MRI BRAIN WO/W IVCON * * *Final Report* * * DATE OF EXAM: Nov 27 2023 2:10PM [facility] 0295 - MRI BRAIN WO/W IVCON / PROCEDURE REASON: multiple diagnoses * * * * Physician Interpretation * * * * EXAMINATION: MRI BRAIN WO/W IVCON CLINICAL HISTORY: Demyelinating disease of the central nervous system. TECHNIQUE: Demyelinating protocol brain MRI without and with contrast. MQ: MRBWOW_2 Contrast: 17 mL Dotarem IV COMPARISON: None. RESULT: Acute Change: There is no evidence of restricted diffusion to suggest an acute infarct. Hemorrhage: No evidence of prior parenchymal hemorrhage on the gradient echo images. Mass Lesion/ Mass Effect: No evidence of an intracranial mass or extra-axial fluid collection. No abnormal parenchymal or leptomeningeal enhancement is noted following contrast administration. No significant mass effect. Chronic Change: The white matter is within normal limits of signal intensity for age. Parenchyma: No significant volume loss for age. The brain parenchyma is otherwise within normal limits of signal intensity and morphology. Ventricles: Normal caliber and morphology. Skull Base: Hypothalamic and pituitary region are grossly normal. Craniocervical junction is normal. No significant marrow replacement process. Vasculature: Major intracranial arterial structures, and dural venous sinuses show typical flow void, suggesting patency by spin echo criteria. Other: The visualized paranasal sinuses and mastoid air cells are clear. The orbits and extracranial soft tissues are unremarkable. IMPRESSION: Normal MRI of the brain without and with contrast Inspector Plating: CHERI Transcribe Date/Time: Nov 27 2023 2:25P Dictated by : VICTOR HUGO MADISON MD This examination was interpreted and the report reviewed and electronically signed by: VICTOR HUGO MADISON MD on Nov 27 2023 2:27PM EST [id number] Normal [facility] No Panel Informationon 11-26 Culture Urine No growth at 48 hours. [facility] Work Phone: US ABDOMEN LIMITEDon 024 US ABDOMEN LIMITED ORIGINAL EXAMINATION: LIMITED ABDOMINAL ULTRASOUND11/27/2023 7:32 am Limited ultrasound of the abdomen attention right upper quadrant COMPARISON: None HISTORY: ORDERING SYSTEM PROVIDED HISTORY: Reason for Exam: RUQ pain, FINDINGS: The liver is normal in size and echogenicity. No suspicious focal lesions are seen. There is no intrahepatic bile duct dilatation. The common duct is 3.4 mm at the jhon hepatis. There is normal antegrade flow in the main portal vein. The gallbladder is normally distended without calculus, wall thickening or tenderness. The visualized pancreas is normal in size and echogenicity. Some portions of the pancreas are obscured by bowel gas. No ascites is seen in the Barrera's pouch. Limited survey images of the right kidney shows normal cortical thickness and echogenicity and no pelvocaliectasis. The visualized abdominal aorta and IVC are normal in caliber. IMPRESSION: Negative ultrasound. No acute findings.. Interpreted by: Zac Molina MD Preliminary Report By: Zac Molina MD Electronically signed By Zac Molina MD Dictated Date: 11/27/2023 2:59:22 PM Prelim Date: 11/27/2023 3:00:22 PM Sign Date: 11/27/2023 3:00:22 PM Ordering Provider: KAILYN Sanz [facility] ([place]) Bacteria Ur Culton 4 Bacteria identified Cx Nom (U) CULTURE, URINE: No growth (<1,000 CFU/ml) Normal [facility] Comment on above: Performed By: #### 6 30-4 ####[facility]UI [id number] HUSAM [address] [place] CNOVon 11-17-2023 CNOV Office Visit (UCTR ) LATONIABERYL Russell ([id number]) 1995 M Date Time Provider Department 11/17/23 6:00 PM FENG DAVIS [facility] During your visit today, we recorded the following information about you: Temperature Pulse Respiration Blood pressure 97.5 degrees 68/minute 16/minute 122/70 Weight 84.7 kg Feng Davis MD 11/17/2023 6:37 PM Signed Patient presents with: Penis/Scrotum Problem: burning x 2 days and blood in stool x this am HPI: Having burning in the urethra for a days. Dysuria: Yes Frequency: Yes Hematuria: No Discharge: No Genital lesion: No Nausea: No Fever or chills: has had some chills Back pain: routine bilateral lower Abdominal pain: has had 2 months of abdominal pains since a bad bout of gastroenteritis. He has noticed some pressure in the lower quadrants today. Today he noticed blood on the toilet paper and on one piece of stool. Denies nausea, constipation, diarrhea, melena. He has had a hemorrhoid in the past but has not noticed any pain or masses recently. Prior UTI: No Personal history of kidney stones: No No personal or family history of ulcerative colitis or Crohn's disease. MEDICATIONS: No current outpatient medications on file. No current facility-administered medications for this visit. ALLERGIES: ALLERGIES No Known Allergies VITALS: BP 122/70 Pulse 68 Temp 36.4 ?C (97.5 ?F) Resp 16 Wt 84.7 kg (186 lb 11.7 oz) SpO2 96% BMI 26.79 kg/m? PHYSICAL EXAM: GEN: NAD HEENT: EOMI, conjunctiva clear, HEART: regular rate and rhythm, no murmurs LUNGS: clear to auscultation, no wheezes or crackles, no increased WOB ABDOMEN: Soft, nondistended, no masses, no suprapubic tenderness BACK: No CVA tenderness RECTAL: hemorrhoid at the left anal verge. No ulceration or induration. ASSESSMENT/PLAN: 1. Penis pain - ICD9: 607.9, ICD10: N48.89 (primary diagnosis) - UA DIP, URINE (POC) - negative, normal Will send - URINE CULTURE Declines GC/Chl testing. He is monogamous with his . No recent vagina intercourse. 2. Blood in stool - ICD9: 578.1, ICD10: K92.1 3. Hemorrhoids, unspecified hemorrhoid type - ICD9: 455.6, ICD10: K64.9 He will treat with hemorrhoid cream. Follow up with PCP, GI, or general surgery for recurrent symptoms. Follow up in the ER with increasing abdominal pain, dizziness, or fever. Feng Davis MD Allergies As of Date: 11/17/2023 (No Known Allergies) Date Reviewed: 11/17/2023 Reviewed by: Sierra Pickens MA - Fully Assessed Reason for Visit: Penis/Scrotum Problem [80] Cmt: burning x 2 days and blood in stool x this am Primary Visit Diagnosis:Penis pain [N48.89] Other Visit Diagnoses:Blood in stool [K92.1] Hemorrhoids, unspecified hemorrhoid type [K64.9] Order(s):UA DIP, URINE (POC) [4543010] Order #: [id number] #:[id number] URINE CULTURE [SQURCUL] Order #: [id number]. #:[id number] Problem List As Of Date: 11/17/2023 (None) Encounter Status:Closed by FENG DAVIS on 11/17/23 Normal [facility] UA DIP, URINE (POC)on 2023 BILIRUBIN UA (POCT) Negative Negative [facility] CLARITY UA (POCT) Clear [facility] COLOR UA (POCT) Light yellow [facility] GLUCOSE UA (POCT) Negative Negative mg/dL [facility] Hemoglobin Ql (U) Negative Negative [facility] Interpretation and review of laboratory results Abnormal [facility] KETONE UA (POCT) Negative Negative mg/dL [facility] LEUKOCYTES UA (POCT) Negative [facility] NITRITE UA (POCT) Negative Negative [facility] PH UA (POCT) 6.0 4.5 - 8.0 [facility] Protein Ql (U) Negative Negative mg/dL [facility] SPECIFIC GRAVITY UA (POCT) <=1.005 Abnormal 1.005 - 1.030 [facility] UROBILINOGEN UA (POCT) 0.2 Normal E.U./dL [facility] Location:[facility], [address] [place] [address], [place], [place], [id number] [place] [address] POINT OF CARE [facility] BARB BY IFA WITH REFLEXon Nuclear Ab Ql (S) Negative Normal Negative [facility] Comment on above: Order Comment: Speci men Type: BLOOD SPECIMENOrdering Facility: [facility] Address: [address] [place] [address] Result Comment: Anti -nuclear antibody test is used as an aid in diagnosis of systemic autoimmune diseases. Where positive and clinically warranted, follow-up using disease-specific testing is recommended. Low positive titers are not uncommon with advanced age, certain chronic infections, and malignancies among others. Test methodology: Indirect fluorescence immunoassay (IFA) using HEp-2 cells. Performed By: #### A NAIFR ####[facility] [id number] [place] [address] [place] HbA1c (Bld)on 11-14-2023 Average glucose Estimated from glycated hemoglobin (Bld) [Mass/Vol] 111 mg/dL Normal [facility] Comment on above: Order Comment: Speci men Type: BLOOD SPECIMENOrdering Facility: [facility] Address: [address] [place] [address] Result Comment: eAG: (Estimated average glucose) is a calculated value from HgbA1c and is manufacturers representative of the average blood glucose level in the last 2-3 month period. Performed By: #### 5 5454-3 ####[facility] LABCLIA [id number] [place] [address] [place] HbA1c (Bld) [Mass fraction] 5.5 % Normal 4.3-5.6 [facility] Comment on above: Order Comment: Sydni downs Type: BLOOD SPECIMENOrdering Facility: [facility] Address: [address] [place] [address] Result Comment: [place] Diabetes Association guidelines indicate that patients with HgbA1c in the range 5.7-6.4% are at increased risk for development of diabetes, and intervention by lifestyle modification may be beneficial. HgbA1c greater or equal to 6.5% is considered diagnostic of diabetes. Performed By: #### 5 5454-3 ####[facility] [id number] [place] [address] [place] TSH SerPl-aCncon 11-14-2023 TSH Qn 3.880 m[IU]/L Normal 0.270-4.200 [facility] Comment on above: Order Comment: Sydni downs Type: BLOOD SPECIMENOrdering Facility: [facility] Address: [address] [place] [address] Performed By: #### 3 016-3 ####[facility] [id number] [place] [address] [place] VITAMIN B1 (THIAMINE), WHOLE BLOODon 11-14-2023 Thiamine (Bld) [Moles/Vol] 206.7 nmol/L Normal 84.3-213.3 [facility] Comment on above: Order Comment: Sydni downs Type: BLOOD SPECIMENOrdering Facility: [facility] Address: [address] [place] [address] Result Comment: This assay measures the concentration of thiamine diphosphate (TDP), the primary active form of vitamin B1. Approximately 90 percent of vitamin B1 present in whole blood is TDP. Thiamine and thiamine monophosphate, which comprise the remaining 10 percent, are not measured. This test was developed and its performance characteristics determined by [facility] Cle[facility] Pathology [facility] [place] ([facility]). It has not been cleared or approved by the FDA. [facility] is regulated under CLIA as qualified to perform high-complexity testing. This test is used for clinical purposes. It should not be regarded as investigational or for research. Performed By: #### B 1WB ####[facility] LABCLIA [id number] HUSAM PERES [id number] [id number] [place] VITAMIN B6/PYRIDOXINon 11-13 VITAMIN B6 312.0 nmol/L High 20.0-125.0 [facility] [place] Comment on above: Order Comment: Speci men Type: BLOOD SPECIMENOrdering Facility: [facility] Address: [address] [place] [address] [place] [address] Result Comment: INTE RPRETIVE INFORMATION: Vitamin B6 (Pyridoxal 5-Phosphate) Pyridoxal 5'-phosphate measured in a specimen collected following an 8-hour or overnight fast accurately indicates vitamin B6 nutritional status. Non-fasting specimen concentration reflects recent vitamin intake. This test was developed and its performance characteristics determined by [facility]. It has not been cleared or approved by the US Food and Drug Administration. This test was performed in a CLIA certified laboratory and is intended for clinical purposes. Performed By: [facility] [address] [place] [address] It Architecture Consultant: Akhil Webb MD, PhD [facility] Number: [id number] Performed By: #### V ITB6 ####[facility] LABORATORIESIA [id number] [place] [address] [facility] 11-13-2023 MARINA Telephone (BRAIN) BERYL LINCOLN ([id number]) 1995 Date Time Provider Department 11/13/23 CHASTITY CRUZ During your visit today, we recorded the following information about you: Chastity Cruz APRN.STEEPING PRESS TENDER 11/13/2023 4:32 PM Signed Call made to patient regarding hospital monitor preliminary results. No answer and VM left for patient. Chastity Cruz APRN.CNP 11/13/2023 4:50 PM Signed Called patient. Discussed recommendation to present to the ED. He reports appointment scheduled for tomorrow with cardiology. Ok with appointment tomorrow. Allergies As of Date: 11/13/2023 (No Known Allergies) Date Reviewed: 10/31/2023 Reviewed by: Chastity Cruz APRN.CNP - Fully Assessed Problem List As Of Date: 11/13/2023 (None) Encounter Status:Closed by CHASTITY CRUZ on 11/13/23 [facility] CNOVon 10-31-2023 CNOV Office Visit (NEURMM ) BERYL LINCOLN ([id number]) 1995 M Date Time Provider Department 10/31/23 12:30 PM CHASTITY CRUZ NEURITZ During your visit today, we recorded the following information about you: Pulse Blood pressure Weight Height 56/minute 121/54 85.1 kg 1.778 m Rosario Duffy 11/13/2023 3:45 PM Unsigned Film Spooler Patient Name: Beryl Lincoln : 1995 Ordering Provider: CHASTITY CRUZ Indication: R07.89 Other chest pain Type of Monitor: Extended Monitoring-Zio Patch Enrollment Dates: 11/04/2023-11/07/2023 IRHYTHM FINDINGS: Patient had a min HR of 29 bpm, max HR of 165 bpm, and avg HR of 55 bpm. Predominant underlying rhythm was Sinus Rhythm. Isolated SVEs were rare (<1.0%), and no SVE Couplets or SVE Triplets were present. Isolated VEs were rare (<1.0%), VE Couplets were rare (<1.0%), and no VE Triplets were present. Ventricular Trigeminy was present. MD notification criteria for Bradycardia met - report posted prior to leaving voicemail per account request (SW). Chastity Cruz APRN.STEEPING PRESS TENDER 11/02/2023 9:21 PM Signed [facility]rolog[facility] [place] New Patient Evaluation CHIEF COMPLAINT: N/t Beryl Lincoln is a 28 year old accompanied by self. Consult was requested by Dr. Alfaro for an opinion regarding above CC. My final impression and recommendations will be communicated back to the requesting physician by way of the shared medical record or fax. October 30, 2023 HPI: Mr. Lincoln presents today secondary to issues of n/t. He states that sx began about 2-3 months ago. At the end of heavy lifts his face would feel off. Aylett mouth puckering. Tingling throughout whole face. Would do cardio later and this would resolve. About one month ago became very severe. Aylett face puckering and drooping on both sides. Hands were numb and tingling. Went home and sx worsened on drive home. Started to radiate to his chest. By the time he got home lost the ability to bend his fingers. EMS was called and sx started to resolve. BP was 170 at the time. EMS asked if he felt he needed to go to the ED but he chose not to go as he was scheduled with his PCP. Two weeks prior did have a bad case of food poisoning. Very dehydrated and malnourished. Lost 15-20lbs. PCP thought maybe exerting himself too much too quickly. Toned down weights and took time between lifting and no more issues at the gym. Then last sx happened when driving. Partial facial weakness bilaterally. No eye/forehead involvement. Tingling in hands and in stomach (middle of stomach near sternum). PCP told him to go to the ED. Had VS checked and lab work, EKG. No findings. Then Friday morning happened again after driving 20 min. Pulled over and called EMS. Was taken to [facility] and had CT and blood work, EKG, CXR. States doctor mentioned vitamin deficiency but did not check labs. Did get supplements the same day. Relaxed all weekend and no episodes; thought vit were working. Per ED note on 10/24/23: MDM / Disposition / Plan Patient is a 28-year-old male with no significant past medical history, presenting to the ED for complaints of facial numbness and tingling, droop, and hand numbness and tingling bilateral. Patient is alert and oriented x 3, sitting erect in cot, appears in no acute distress. Mildly anxious. PERRLA. No focal deficit. Respirations even unlabored, lung sounds clear. S1-S2 present without tachycardia. Abdomen soft, nontender nondistended. Moving all 4 extremities without any peripheral edema or numbness or tingling. Speaking in full sentences without difficulty. Patient had a ED workup completed showing negative VAISHALI, negative D-dimer normal normal magnesium. Unremarkable CBC and CMP. He had a chest x-ray showing no acute process as well as a CT brain which was benign. Patient was educated on results of diagnostics. Recommended outpatient blood pressure monitoring, follow-up with PCP. Also established patient with neurology as these are neurological symptoms without deficits or diagnostics without any acute event he should be reevaluated. Patient educated on potential causes such as vitamin deficit. Patient and friend at bedside are both agreeable to discharge plan and verbalized understanding. Then this Tues had blood work completed. And will be getting abd US. On his way back from work again he had similar sx; tingling in hands and pulling in stomach. Got out of the car and sx stopped then felt better. Longest episode was up to 40 min. Peak is about 5-10 min then gradually improves in about 25-30 min. Most recent was only a few min. Had B12 and folate checked. No vision changes, speech changes. Mouth drooping so does have some speech which is off. No focal weakness. Never had issues with legs. No b/b changes. No head injuires/neck injuries. No neuro ds. Mother with Lupus; dx 5-10 y (more content not included)... Normal [facility] [id number] By: SYSTEM SYSTEM on 10-28-2023 Cobalamin (Vitamin B12) [Mass/Vol] 934 pg/mL High 211-911 ADM SS Comment on above: Performed By: #### B 12, FOL #### [address] 10-28-2023 Folate >48.00 High 5.38-24.00 [facility] ([place]) Comment on above: Performed By: #### B 12, FOL #### [place] [address] LABORATORYOrdered By: SYSTEM SYSTEM on 10-28-2023 Folate [Mass/Vol] ng/mL High 5.38 - 24. 00 ng/mL AH ADM SS .GFRon 10-23-2023 GFR 100 ml/min/1.73sqm Normal [facility] ([place]) Comment on above: Result Comment: GFR Population mean for , Non- Americans Ages 20-29 = 116 mL/min/1.73 sq.m. Ages 30-39 = 107 mL/min/1.73 sq.m. Ages 40-49 = 99 mL/min/1.73 sq.m. Ages 50-59 = 93 mL/min/1.73 sq.m. Ages 60-69 = 85 mL/min/1.73 sq.m. Ages 70+ = 75 mL/min/1.73 sq.m. Chronic Kidney Disease: Less than 60 mL/min/1.73 square meters End Stage Renal Disease: Less than 15 mL/min/1.73 square meters Performed By: #### B MP, GFR #### [address] [address] GFR Non- 82 ml/min/1.73sqm Normal [facility] ([place]) Comment on above: Result Comment: GFR Population mean for , Non- Americans Ages 20-29 = 116 mL/min/1.73 sq.m. Ages 30-39 = 107 mL/min/1.73 sq.m. Ages 40-49 = 99 mL/min/1.73 sq.m. Ages 50-59 = 93 mL/min/1.73 sq.m. Ages 60-69 = 85 mL/min/1.73 sq.m. Ages 70+ = 75 mL/min/1.73 sq.m. Chronic Kidney Disease: Less than 60 mL/min/1.73 square meters End Stage Renal Disease: Less than 15 mL/min/1.73 square meters Performed By: #### B MP, GFR #### [place] [address] [address] BMPon 10-23-2023 BUN/Creatinine Ratio 9 ratio Normal 7-27 [facility] ([place]) Comment on above: Performed By: #### B MP, GFR #### [address] [address] Calcium [Mass/Vol] 9.4 mg/dL Normal 8.4-10.2 [facility] ([place]) Comment on above: Performed By: #### B MP, GFR #### [address] [address] Chloride [Moles/Vol] 104 mmol/L Normal 98-107 [facility] ([place]) Comment on above: Performed By: #### B MP, GFR #### [address] [address] CO2 [Moles/Vol] 28 mmol/L Normal 22-29 [facility] ([place]) Comment on above: Performed By: #### B MP, GFR #### [address] [address] Creatinine [Mass/Vol] 1.07 mg/dL Normal 0.70-1.30 [facility] ([place]) Comment on above: Performed By: #### B MP, GFR #### [address] [address] Electrolyte Balance 9.0 mEq/L Normal 4.0-15.0 [facility] ([place]) Comment on above: Performed By: #### B MP, GFR #### [address] [address] Glucose [Mass/Vol] 101 mg/dL Normal 70-105 [facility] ([place]) Comment on above: Performed By: #### B MP, GFR #### [address] [address] Potassium [Moles/Vol] 3.9 mmol/L Normal 3.5-5.1 [facility] ([place]) Comment on above: Performed By: #### B MP, GFR #### [address] [address] Sodium [Moles/Vol] 141 mmol/L Normal 136-145 [facility] ([place]) Comment on above: Performed By: #### B MP, GFR #### [place] [address] [place], [place] [address] Urea nitrogen [Mass/Vol] 10 mg/dL Normal 7-18 [facility] ([place]) Comment on above: Performed By: #### B MP, GFR #### [place] [address] [place], [place] [address] LABORATORYOrdered By: SYSTEM SYSTEM on 10-23-2023 Calcium [Mass/Vol] 9.4 mg/dL Normal 8.4 - 10. 2 mg/dL AO ADM SS Chloride [Moles/Vol] 104 mmol/L Normal 98 - 10 7 mmol/L AO ADM SS CO2 [Moles/Vol] 28 mmol/L Normal 22 - 29 mmol/L AO ADM SS Creatinine [Mass/Vol] 1.07 mg/dL Normal 0.70 - 1.30 mg/dL AO ADM SS Electrolyte Balance 9.0 mEq/L Normal 4.0 - 15 .0 mEq/L AO ADM SS GFR/1.73 sq M.predicted among blacks MDRD (S/P/Bld) [Vol rate/Area] 100 ml/min/1.73sqm Invalid Interpretation Code AO Chemistry S Comment on above: Interpretive Data: GFR Population mean for , Non- Americans Ages 20-29 = 116 mL/min/1.73 sq.m. Ages 30-39 = 107 mL/min/1.73 sq.m. Ages 40-49 = 99 mL/min/1.73 sq.m. Ages 50-59 = 93 mL/min/1.73 sq.m. Ages 60-69 = 85 mL/min/1.73 sq.m. Ages 70+ = 75 mL/min/1.73 sq.m. Chronic Kidney Disease: Less than 60 mL/min/1.73 square meters End Stage Renal Disease: Less than 15 mL/min/1.73 square meters GFR/1.73 sq M.predicted among non-blacks MDRD (S/P/Bld) [Vol rate/Area] 82 ml/min/1.73sqm Invalid Interpretation Code AO Chemistry S Comment on above: Interpretive Data: GFR Population mean for , Non- Americans Ages 20-29 = 116 mL/min/1.73 sq.m. Ages 30-39 = 107 mL/min/1.73 sq.m. Ages 40-49 = 99 mL/min/1.73 sq.m. Ages 50-59 = 93 mL/min/1.73 sq.m. Ages 60-69 = 85 mL/min/1.73 sq.m. Ages 70+ = 75 mL/min/1.73 sq.m. Chronic Kidney Disease: Less than 60 mL/min/1.73 square meters End Stage Renal Disease: Less than 15 mL/min/1.73 square meters Glucose [Mass/Vol] 101 mg/dL Normal 70 - 105 mg/dL AO ADM SS Potassium [Moles/Vol] 3.9 mmol/L Normal 3.5 - 5.1 mmol/L AO ADM SS Sodium [Moles/Vol] 141 mmol/L Normal 136 - 145 mmol/L AO ADM SS Urea nitrogen [Mass/Vol] 10 mg/dL Normal 7 - 18 mg/dL AO ADM SS Urea nitrogen/Creatinine [Mass ratio] 9 ratio Normal 7 - 27 ratio AO ADM SS .GFRon 10-14-2023 GFR Non- 88 ml/min/1.73sqm Normal [facility] ([place]) Comment on above: Result Comment: GFR Population mean for , Non- Americans Ages 20-29 = 116 mL/min/1.73 sq.m. Ages 30-39 = 107 mL/min/1.73 sq.m. Ages 40-49 = 99 mL/min/1.73 sq.m. Ages 50-59 = 93 mL/min/1.73 sq.m. Ages 60-69 = 85 mL/min/1.73 sq.m. Ages 70+ = 75 mL/min/1.73 sq.m. Chronic Kidney Disease: Less than 60 mL/min/1.73 square meters End Stage Renal Disease: Less than 15 mL/min/1.73 square meters Performed By: #### B 12, FOL #### [place] [address] GFR 107 ml/min/1.73sqm Normal [facility] ([place]) Comment on above: Result Comment: GFR Population mean for , Non- Americans Ages 20-29 = 116 mL/min/1.73 sq.m. Ages 30-39 = 107 mL/min/1.73 sq.m. Ages 40-49 = 99 mL/min/1.73 sq.m. Ages 50-59 = 93 mL/min/1.73 sq.m. Ages 60-69 = 85 mL/min/1.73 sq.m. Ages 70+ = 75 mL/min/1.73 sq.m. Chronic Kidney Disease: Less than 60 mL/min/1.73 square meters End Stage Renal Disease: Less than 15 mL/min/1.73 square meters Performed By: #### B 12, FOL #### [address] 10-14-2023 BUN/Creatinine Ratio 12 ratio Normal 7-27 [facility] ([place]) Comment on above: Performed By: #### G FR, LIPID, BMP #### [address] [address] Calcium [Mass/Vol] 8.8 mg/dL Normal 8.4-10.2 [facility] ([place]) Comment on above: Performed By: #### G FR, LIPID, BMP #### [address] [address] Chloride [Moles/Vol] 105 mmol/L Normal 98-107 [facility] ([place]) Comment on above: Performed By: #### G FR, LIPID, BMP #### [address] [address] CO2 [Moles/Vol] 28 mmol/L Normal 22-29 [facility] ([place]) Comment on above: Performed By: #### G FR, LIPID, BMP #### [address] [address] Creatinine [Mass/Vol] 1.01 mg/dL Normal 0.70-1.30 [facility] ([place]) Comment on above: Performed By: #### G FR, LIPID, BMP #### [address] [address] Electrolyte Balance 9.0 mEq/L Normal 4.0-15.0 [facility] ([place]) Comment on above: Performed By: #### G FR, LIPID, BMP #### [address] [address] Glucose [Mass/Vol] 102 mg/dL Normal 70-105 [facility] ([place]) Comment on above: Performed By: #### G FR, LIPID, BMP #### [address] [address] Potassium [Moles/Vol] 4.0 mmol/L Normal 3.5-5.1 [facility] ([place]) Comment on above: Performed By: #### G FR, LIPID, BMP #### [address] [address] Sodium [Moles/Vol] 142 mmol/L Normal 136-145 [facility] ([place]) Comment on above: Performed By: #### G FR, LIPID, BMP #### [address] [address] Urea nitrogen [Mass/Vol] 12 mg/dL Normal 7-18 [facility] ([place]) Comment on above: Performed By: #### G FR, LIPID, BMP #### [address] [address] LABORATORYOrdered By: SYSTEM SYSTEM on 10-14-2023 Calcium [Mass/Vol] 8.8 mg/dL Normal 8.4 - 10. 2 mg/dL AO ADM SS Chloride [Moles/Vol] 105 mmol/L Normal 98 - 10 7 mmol/L AO ADM SS CO2 [Moles/Vol] 28 mmol/L Normal 22 - 29 mmol/L AO ADM SS Creatinine [Mass/Vol] 1.01 mg/dL Normal 0.70 - 1.30 mg/dL AO ADM SS Electrolyte Balance 9.0 mEq/L Normal 4.0 - 15 .0 mEq/L AO ADM SS GFR/1.73 sq M.predicted among blacks MDRD (S/P/Bld) [Vol rate/Area] 107 ml/min/1.73sqm Invalid Interpretation Code AO Chemistry S Comment on above: Interpretive Data: GFR Population mean for , Non- Americans Ages 20-29 = 116 mL/min/1.73 sq.m. Ages 30-39 = 107 mL/min/1.73 sq.m. Ages 40-49 = 99 mL/min/1.73 sq.m. Ages 50-59 = 93 mL/min/1.73 sq.m. Ages 60-69 = 85 mL/min/1.73 sq.m. Ages 70+ = 75 mL/min/1.73 sq.m. Chronic Kidney Disease: Less than 60 mL/min/1.73 square meters End Stage Renal Disease: Less than 15 mL/min/1.73 square meters GFR/1.73 sq M.predicted among non-blacks MDRD (S/P/Bld) [Vol rate/Area] 88 ml/min/1.73sqm Invalid Interpretation Code AO Chemistry S Comment on above: Interpretive Data: GFR Population mean for , Non- Americans Ages 20-29 = 116 mL/min/1.73 sq.m. Ages 30-39 = 107 mL/min/1.73 sq.m. Ages 40-49 = 99 mL/min/1.73 sq.m. Ages 50-59 = 93 mL/min/1.73 sq.m. Ages 60-69 = 85 mL/min/1.73 sq.m. Ages 70+ = 75 mL/min/1.73 sq.m. Chronic Kidney Disease: Less than 60 mL/min/1.73 square meters End Stage Renal Disease: Less than 15 mL/min/1.73 square meters Glucose [Mass/Vol] 102 mg/dL Normal 70 - 105 mg/dL AO ADM SS Potassium [Moles/Vol] 4.0 mmol/L Normal 3.5 - 5.1 mmol/L AO ADM SS Sodium [Moles/Vol] 142 mmol/L Normal 136 - 145 mmol/L AO ADM SS Urea nitrogen [Mass/Vol] 12 mg/dL Normal 7 - 18 mg/dL AO ADM SS Urea nitrogen/Creatinine [Mass ratio] 12 ratio Normal 7 - 27 ratio AO ADM SS LABORATORYOrdered By: Bowen Ribeiro on 10-14-2023 Cholesterol [Mass/Vol] 142 mg/dL Normal 0 - 200 mg/dL AO ADM SS Comment on above: Interpretive Data: C holesterol Reference Interval: Less than 200 Desirable 200-239 Borderline high risk 240 and above High risk Cholesterol in HDL [Mass/Vol] 36 mg/dL Low 40 - 60 mg/dL AO ADM SS Cholesterol in LDL [Mass/Vol] 86 mg/dL Normal 0 - 130 mg/dL AO ADM SS Triglyceride [Mass/Vol] 101 mg/dL Normal 0 - 150 mg/dL AO ADM SS Comment on above: Interpretive Data: T riglyceride Reference Interval: Less than 150 Normal 150-199 Borderline high risk 200-499 High risk 500 or higher Very high risk LIPIDon 10-14-2023 Cholesterol [Mass/Vol] 142 mg/dL Normal 0-200 [facility] ([place]) Comment on above: Result Comment: Chol esterol Reference Interval: Less than 200 Desirable 200-239 Borderline high risk 240 and above High risk Performed By: #### B 12, FOL #### [address] [address] Cholesterol in HDL [Mass/Vol] 36 mg/dL Low 40-60 [facility] ([place]) Comment on above: Performed By: #### B 12, FOL #### [address] [address] Cholesterol in LDL [Mass/Vol] 86 mg/dL Normal 0-130 [facility] ([place]) Comment on above: Performed By: #### B 12, FOL #### [address] [address] Triglyceride [Mass/Vol] 101 mg/dL Normal 0-150 [facility] ([place]) Comment on above: Result Comment: Trig lyceride Reference Interval: Less than 150 Normal 150-199 Borderline high risk 200-499 High risk 500 or higher Very high risk Performed By: #### B 12, FOL #### [address] [address] Vital Signs Date Time Vital Sign Value Performing Clinician Facility 09-30-2024 07:49-0500 Body mass index (BMI) [Ratio] 29.8 kg/m2 Tammy Lemus APRN.CNP Work Phone: [facility] 09-30-2024 07:49-0500 Body temperature 97.3 [degF] Tammy Lemus APRN.CNP Work Phone: [facility] 09-30-2024 07:49-0500 Body weight 94.2 kg Tammy Praisler-Wood POKER PROP PLAYER.STEEPING PRESS TENDER Work Phone: [facility] 09-30-2024 07:49-0500 Diastolic blood pressure 77 mm[Hg] Tammy Praisler-Wood POKER PROP PLAYER.STEEPING PRESS TENDER Work Phone: [facility] 09-30-2024 07:49-0500 Heart rate 55 /min Tammy Praisler-Wood POKER PROP PLAYER.STEEPING PRESS TENDER Work Phone: [facility] 09-30-2024 07:49-0500 Respiratory rate 18 /min Tammy Praisler-Wood POKER PROP PLAYER.STEEPING PRESS TENDER Work Phone: [facility] 09-30-2024 07:49-0500 SaO2% (BldA) [Mass fraction] 97 % Tammy Praisler-Wood POKER PROP PLAYER.STEEPING PRESS TENDER Work Phone: [facility] 09-30-2024 07:49-0500 Systolic blood pressure 121 mm[Hg] Tammy Praisler-Wood POKER PROP PLAYER.STEEPING PRESS TENDER Work Phone: [facility] 08-23-2024 09:20-0500 Body mass index (BMI) [Ratio] 29.86 kg/m2 Krislyn Aberegg PA Work Phone: [facility] 08-23-2024 09:20-0500 Body temperature 99.81 [degF] Krislyn Aberegg PA Work Phone: [facility] 08-23-2024 09:20-0500 Body weight 94.4 kg Krislyn Aberegg PA Work Phone: [facility] 08-23-2024 09:20-0500 Diastolic blood pressure 76 mm[Hg] Krislyn Aberegg PA Work Phone: [facility] 08-23-2024 09:20-0500 Heart rate 117 /min Krislyn Aberegg PA Work Phone: [facility] 08-23-2024 09:20-0500 Respiratory rate 16 /min Krislyn Aberegg PA Work Phone: [facility] 08-23-2024 09:20-0500 SaO2% (BldA) [Mass fraction] 95 % Krislyn Aberegg PA Work Phone: [facility] 08-23-2024 09:20-0500 Systolic blood pressure 112 mm[Hg] Krislyn Aberegg PA Work Phone: [facility] 01-02-2024 07:26-0400 Body height 177.8 cm Chastity Dahlhausen POKER PROP PLAYER.STEEPING PRESS TENDER Work Phone: [facility] 01-02-2024 07:26-0400 Body mass index (BMI) [Ratio] 28.28 kg/m2 Chastity Dahlhausen POKER PROP PLAYER.STEEPING PRESS TENDER Work Phone: [facility] 01-02-2024 07:26-0400 Body weight 89.4 kg Chastity Dahlhausen POKER PROP PLAYER.STEEPING PRESS TENDER Work Phone: [facility] 01-02-2024 07:26-0400 Diastolic blood pressure 68 mm[Hg] Chastity Dahlhausen POKER PROP PLAYER.STEEPING PRESS TENDER Work Phone: [facility] 01-02-2024 07:26-0400 Heart rate 55 /min Chastity Dasusanahausen POKER PROP PLAYER.STEEPING PRESS TENDER Work Phone: [facility] 01-02-2024 07:26-0400 SaO2% (BldA) [Mass fraction] 100 % Chastity Dasusanahausen POKER PROP PLAYER.STEEPING PRESS TENDER Work Phone: [facility] 01-02-2024 07:26-0400 Systolic blood pressure 112 mm[Hg] Chastity Dahlhausen POKER PROP PLAYER.STEEPING PRESS TENDER Work Phone: [facility] 11-17-2023 18:02-0400 Body mass index (BMI) [Ratio] 26.79 kg/m2 Feng Davis MD Work Phone: [facility] 11-17-2023 18:02-0400 Body temperature 97.5 [degF] Feng Davis MD Work Phone: [facility] 11-17-2023 18:02-0400 Body weight 84.7 kg Feng Davis MD Work Phone: [facility] 11-17-2023 18:02-0400 Diastolic blood pressure 70 mm[Hg] Feng Davis MD Work Phone: [facility] 11-17-2023 18:02-0400 Heart rate 68 /min Feng Davis MD Work Phone: [facility] 11-17-2023 18:02-0400 Respiratory rate 16 /min Feng Davis MD Work Phone: [facility] 11-17-2023 18:02-0400 SaO2% (BldA) [Mass fraction] 96 % Feng Davis MD Work Phone: [facility] 11-17-2023 18:02-0400 Systolic blood pressure 122 mm[Hg] Feng Davis MD Work Phone: [facility] 10-31-2023 12:28-0400 Body height 177.8 cm Chastity Dahlhausen POKER PROP PLAYER.STEEPING PRESS TENDER Work Phone: [facility] 10-31-2023 12:28-0400 Body weight 85.1 kg Chastity Dahlhausen POKER PROP PLAYER.STEEPING PRESS TENDER Work Phone: [facility] 10-31-2023 12:28-0400 Diastolic blood pressure 54 mm[Hg] Chastity Dahlhausen POKER PROP PLAYER.STEEPING PRESS TENDER Work Phone: [facility] 10-31-2023 12:28-0400 Heart rate 56 /min Chastity Dahlhausen POKER PROP PLAYER.STEEPING PRESS TENDER Work Phone: [facility] 10-31-2023 12:28-0400 SaO2% (BldA) [Mass fraction] 98 % Chastity Dahlhausen POKER PROP PLAYER.STEEPING PRESS TENDER Work Phone: [facility] 10-31-2023 12:28-0400 Systolic blood pressure 121 mm[Hg] Chastity Dahlhausen STEEPING PRESS TENDER Work Phone: [facility] 10-23-2023 20:27-0400 Diastolic Blood Pressure Non-Invasive 80 mm[Hg] DR BAMBI ROJAS DO [facility] 10-23-2023 20:27-0400 Heart rate 62 /min DR BAMBI ROJAS DO [facility] 10-23-2023 20:27-0400 Respiratory rate 16 /min DR BAMBI ROJAS DO [facility] 10-23-2023 20:27-0400 Systolic Blood Pressure Non-Invasive 155 mm[Hg] DR BAMBI ROJAS DO [facility] 10-23-2023 18:37-0400 Body temperature 98.42 [degF] DR BAMBI ROJAS DO [facility] 10-23-2023 18:37-0400 Diastolic Blood Pressure Non-Invasive 84 mm[Hg] DR BAMBI ROJAS DO [facility] 10-23-2023 18:37-0400 Heart rate 60 /min DR BAMBI ROJAS DO [facility] 10-23-2023 18:37-0400 Respiratory rate 16 /min DR BAMBI ROJAS DO [facility] 10-23-2023 18:37-0400 Systolic Blood Pressure Non-Invasive 172 mm[Hg] DR BAMBI ROJAS DO [facility] 01-25-2023 12:17-0400 Blood Pressure Location NIDAL CHOUJAA DO [facility] 01-25-2023 12:17-0400 Body temperature 97.34 [degF] NIDAL CHOUJAA DO [facility] 01-25-2023 12:17-0400 Body weight 90.6 kg NIDAL CHOUJAA DO [facility] 01-25-2023 12:17-0400 Diastolic Blood Pressure Non-Invasive 75 1 NIDAL CHOUJAA DO [facility] 01-25-2023 12:17-0400 Heart rate 91 /min NIDIA CHOUJAA DO [facility] 01-25-2023 12:17-0400 Respiratory rate 18 /min [facility] CHOUJAA DO [facility] 01-25-2023 12:17-0400 Systolic Blood Pressure Non-Invasive 128 1 [facility] 01-24-2023 20:17-0400 Body height 177.[address] ALLYSSA MCKEON MD [facility] 01-24-2023 20:17-0400 Body temperature 98.42 [degF] DR ALLYSSA MCKEON MD [facility] 01-24-2023 20:17-0400 Body weight 95.[address] ALLYSSA MCKEON MD [facility] 01-24-2023 20:17-0400 Diastolic Blood Pressure Non-Invasive [address] ALLYSSA MCKEON MD [facility] 01-24-2023 20:17-0400 Heart rate 76 /min DR ALLYSSA MCKEON MD [facility] 01-24-2023 20:17-0400 Respiratory rate 18 /min DR ALLYSSA MCKEON MD [facility] 01-24-2023 20:17-0400 Systolic Blood Pressure Non-Invasive [address] ALLYSSA MCKEON MD [facility] Encounters Encounter Date Encounter Type Care Provider Facility Start: 02-07-2025 Encounter for genera l adult medical examination [facility] Start: 02-07-2025 ambulatory Jeison Bernie Facility:[facility] Start: 11-29-2024 End: 11-29-2024 ambulatory KAILYN MAST [employer]OKER PROP PLAYER-STEEPING PRESS TENDER Facility:[facility] Start: 11-29-2024 End: 11-29-2024 Patient encounter procedure KAILYN MAST POKER PROP PLAYER-STEEPING PRESS TENDER [facility] Start: 09-30-2024 End: 09-30-2024 ambulatory KAILYN MAST Facility:[facility] Start: 09-30-2024 End: 09-30-2024 Patient encounter procedure Tammy Lemus APRN.STEEPING PRESS TENDER Work Phone: [facility] Comment on above: Viral bronchitis (Pr imary Dx) Start: 08-23-2024 End: 08-23-2024 ambulatory KAILYN MAST Facility:[facility] Start: 08-23-2024 End: 08-23-2024 Patient encounter procedure Rayshawn CAN Work Phone: [facility] Comment on above: Sore throat (Primary Dx); URI, acute Start: 02-03-2024 End: 02-03-[address] SHOSHANA PLAZA MD [facility] Start: 01-28-[address] SHOSHANA PLAZA MD Facil ity:B Start: 01-15-2024 End: 01-15-2024 ambulatory KAILYN MAST POKER PROP PLAYER-STEEPING PRESS TENDER Facility:A Start: 01-15-2024 End: 01-15-[address] SHOSHANA PLAZA MD [facility] Start: 01-13-2024 End: 01-13-2024 ambulatory KAILYN MAST Facility:[facility] Start: 01-02-2024 End: 01-02-2024 ambulatory KAILYN MAST Facility:[facility] Start: 01-02-2024 End: 01-02-2024 Patient encounter procedure Chastity Cruz POKER PROP PLAYER.STEEPING PRESS TENDER Work Phone: Neurology Comment on above: Facial weakness (Trinity chitra Dx); Chest tightness; Tingling Start: 12-02-2023 End: 12-02-2023 ambulatory KAILYN MAST [employer]ER [employer] PLAYER-STEEPING PRESS TENDER Facility:B Start: 12-02-2023 End: 12-02-[address] SHOSHANA PLAZA MD [facility] Start: 11-27-2023 End: 11-27-2023 ambulatory KAILYN MAST Facility:[facility] Start: 11-27-2023 End: 11-27-2023 Subsequent hospital visit by physician Mri Radio [facility] Wstr (I-Stat/1.5t) Work Phone: Radiology Comment on above: Demyelinating diseas e of central nervous system (HCC) [G37.9] Start: 11-27-2023 End: 12-01-2023 ambulatory KAILYN MAST POKER [employer] PLAYER-STEEPING PRESS TENDER Facility:[facility] Start: 11-27-2023 End: 12-01-[address] KING RODRIGUEZ DO [facility] Start: 11-27-2023 End: 11-27-2023 ambulatory KAILYN MAST [employer]ER [employer] PLAYER-STEEPING PRESS TENDER Facility:B Start: 11-27-2023 End: 11-27-2023 Patient encounter procedure KAILYN MAST POKER PROP PLAYER-STEEPING PRESS TENDER [facility] Start: 11-17-2023 End: 11-17-2023 ambulatory KAILYN MAST Facility:[facility] Start: 11-17-2023 End: 11-17-2023 Patient encounter procedure Feng Davis MD Work Phone: [facility] Comment on above: Penis pain (Primary Dx); Blood in stool; Hemorrhoids, unspecified hemorrhoid type Start: 11-14-2023 End: 11-14-2023 ambulatory KAILYN MAST Facility:[facility] Start: 11-13-2023 Telephone encounter Chastity Drake olya POKER PROP PLAYER.STEEPING PRESS TENDER Work Phone: Neurology Start: 10-31-2023 End: 10-31-2023 ambulatory NY ALFARO Facility:[facility] Start: 10-31-2023 End: 10-31-2023 Patient encounter procedure Chastity Drakeolya POKER PROP PLAYER.STEEPING PRESS TENDER Work Phone: Neurology Comment on above: Facial weakness (Trinity chitra Dx); Demyelinating disease of central nervous system (HCC); Transient cerebral ischemia, unspecified type; Chest tightness; Tingling Start: 10-28-2023 ambulatory KAILYN MAST POKER PROP PLAYER-STEEPING PRESS TENDER Fa cility:B Start: 10-28-2023 End: 11-01-2023 Outreach Lab KAILYN MAST POKER PROP PLAYER-STEEPING PRESS TENDER [facility] Start: 10-23-2023 End: 10-23-2023 Emergency department patient visit DR BAMBI ROJAS DO [facility] Start: 10-14-2023 End: 10-18-2023 ambulatory KAILYN MAST POKER PROP PLAYER-STEEPING PRESS TENDER Facility:B Start: 10-14-2023 End: 10-18-2023 Outreach Lab KAILYN MAST POKER PROP PLAYER-STEEPING PRESS TENDER [facility] Start: 01-25-2023 End: 01-25-2023 Emergency department patient visit VIVIANA MARROQUIN DO [facility] Start: 01-24-2023 End: 01-24-2023 Emergency department patient visit DR ALLYSSA MCKEON MD [facility] Procedures Date Procedure Procedure Detail Performing Clinician Start: 08-23-2024 STREP A MOLECULAR (POC) Rayshawn CAN Work Phone: Start: 11-27-2023 Mri brain brain stem w/o w/contrast material Chastity Cruz APRN.STEEPING PRESS TENDER Work Phone: Start: 11-17-2023 Urnls dip stick/tabl et rgnt auto w/o microscopy Feng Davis MD Work Phone: Start: 11-14-2023 None (qualifier value) KAILYN CROWE POKER PROP PLAYER-STEEPING PRESS TENDER Plan of Treatment Date Care Activity Detail Author Start: 02-13-2032 Urine microalbumin profile DTaP,Tdap,Td Vaccine (8 - Td or Tdap) [facility] Start: 03-28-2024 Covid-19 Vaccine ( season) Covid-19 Vaccine ( season) [facility] Start: 03-28-2024 Influenza vaccination Influenz a Vaccine (Season Ended) [facility] Start: 01-02-2024 End: 04-02-2024 Pyridoxine [Mass/volume] in Serum or Plasma VITAMIN B6/PYRIDOXIN Lab Routine Tingling Expected: 01/02/2024, Expires: 04/02/2024 [facility] Work Phone: Comment on above: Expected: 01/02/2024 , Expires: 04/02/2024 Start: 01-02-2024 End: 01-02-2024 Patient encounter procedure 01/02/2024 7:30 AM EDT Office Visit Neurology [address] [address] Chastity Cruz APRN.STEEPING PRESS TENDER [address] [place] [address] follow up after testing Neurology Comment on above: follow up after test ing Start: 12-18-2023 End: 12-18-2023 Patient encounter procedure 12/18/2023 8:45 AM EDT Office Visit Neurology [address] [place] [address] Facial weakness [R29.810] Neurology Comment on above: Facial weakness [R29 .810] Start: 11-27-2023 End: 11-27-2023 Patient encounter procedure 11/27/2023 1:40 PM EDT Appointment Radiology [address] [place] [address] Demyelinating disease of central nervous system (HCC) [G37.9] Radiology Comment on above: Demyelinating diseas e of central nervous system (HCC) [G37.9] Start: 10-31-2023 End: 01-30-2024 BARB BY IFA WITH REFLEX BARB BY IFA WITH REFLEX Lab Routine Facial weakness Tingling Expected: 10/31/2023, Expires: 01/30/2024 [facility] Work Phone: Comment on above: Expected: 10/31/2023 , Expires: 01/30/2024 Start: 10-31-2023 End: 01-30-2024 Hemoglobin A1c in Blood HGB A1C Lab Routine Facial weakness Tingling Expected: 10/31/2023, Expires: 01/30/2024 [facility] Work Phone: Comment on above: Expected: 10/31/2023 , Expires: 01/30/2024 Start: 10-31-2023 End: 01-30-2024 Pyridoxine [Mass/volume] in Serum or Plasma VITAMIN B6/PYRIDOXIN Lab Routine Facial weakness Tingling Expected: 10/31/2023, Expires: 01/30/2024 [facility] Work Phone: Comment on above: Expected: 10/31/2023 , Expires: 01/30/2024 Start: 10-31-2023 End: 01-30-2024 Thyrotropin [Units/volume] in Serum or Plasma TSH BLD Lab Routine Facial weakness Tingling Expected: 10/31/2023, Expires: 01/30/2024 [facility] Work Phone: Comment on above: Expected: 10/31/2023 , Expires: 01/30/2024 Start: 10-31-2023 End: 01-30-2024 VITAMIN B1 (THIAMINE), WHOLE BLOOD VITAMIN B1 (THIAMINE), WHOLE BLOOD Lab Routine Facial weakness Tingling Expected: 10/31/2023, Expires: 01/30/2024 [facility] Work Phone: Comment on above: Expected: 10/31/2023 , Expires: 01/30/2024 Start: 07-28-2023 Behavioral Health Screening Behavioral Health Screening [facility] Start: 03-28-2023 Covid-19 Vaccine () Covid-19 Vaccine () [facility] Start: 2013 Anxiety Screening Anxiety Screening [facility] Start: 2013 Depression Screening Depression Scre ening [facility] Start: 2013 Hepatitis C screening Hepatitis C Sc reening [facility] Start: 2013 HIV screening HIV Screening [facility] Bacteria identified in Urine by Culture URINE CULTURE Microbiology Routine Penis pain 11/17/2023 6:37 PM EDT [facility] Work Phone: End: 10-30-2024 EPIL EEG ROUTINE EPIL EEG ROUTINE NEUROLOGY Routine Facial weakness 1 Occurrences starting 10/31/2023 until 10/30/2024 [facility] Work Phone: Comment on above: 1 Occurrences starti ng 10/31/2023 until 10/30/2024 End: 11-29-2024 MR Brain WO and W contrast IV MRI BRAIN WO/W IVCON Radiology Routine Demyelinating disease of central nervous system (HCC) Transient cerebral ischemia, unspecified type Facial weakness Tingling 1 Occurrences starting 10/31/2023 until 11/29/2024 [facility] Work Phone: Comment on above: 1 Occurrences starti ng 10/31/2023 until 11/29/2024 OUTSIDE VENDOR CARDI AC OUTPATIENT EXTENDED RHYTHM RECORDING (WITHOUT TELEMETRY) OUTSIDE VENDOR CARDIAC OUTPATIENT EXTENDED RHYTHM RECORDING (WITHOUT TELEMETRY) Holter Routine Chest tightness Ordered: 10/31/2023 [facility] Work Phone: Comment on above: Ordered: 10/31/2023 [facility] Immun[facility] Immunization Date Immunization Notes Care Provider Fa chayo 05-24-2024 influenza, injectabl e, quadrivalent, contains preservative; Translations: [Fluarix PF Prefilled Syringe ] KAILYN MAST POKER PROP PLAYER-STEEPING PRESS TENDER [facility] Comment on above: Early/Late Reason: E joseline/Late Reason: Other: 02-12-2022 tetanus and diphther ia toxoids, adsorbed, preservative free, for adult use (5 Lf of tetanus toxoid and 2 Lf of diphtheria toxoid) KAILYN MAST POKER PROP PLAYER-STEEPING PRESS TENDER [facility] 04-12-2021 SARS-CoV-2 mRNA (tozinameran) vaccine KAILYN MAST POKER PROP PLAYER-STEEPING PRESS TENDER [facility] Comment on above: Result Comment: 2023: TPVAL 03-22-2021 SARS-CoV-2 mRNA (tozinameran) vaccine KAILYN MAST POKER PROP PLAYER-STEEPING PRESS TENDER [facility] Comment on above: Result Comment: 2023: TPVAL 05-03-2013 influenza virus vaccine, unspecified formulation Chastity Drakesusanaspike POKER PROP PLAYER.STEEPING PRESS TENDER Work Phone: [facility] 02-25-2013 influenza virus vaccine, unspecified formulation KAILYN MAST POKER PROP PLAYER-STEEPING PRESS TENDER [facility] 04-28-2012 influenza virus vaccine, unspecified formulation KAILYN MAST POKER PROP PLAYER-STEEPING PRESS TENDER [facility] 10-22-2011 Human Papillomavirus Quadval KAILYN MAST POKER PROP PLAYER-STEEPING PRESS TENDER [facility] 06-25-2011 Human Papillomavirus Quadval KAILYN MAST POKER PROP PLAYER-STEEPING PRESS TENDER [facility] 04-16-2011 Human Papillomavirus Quadval KAILYN MAST POKER PROP PLAYER-STEEPING PRESS TENDER [facility] 04-16-2011 influenza virus vaccine, unspecified formulation KAILYN MAST POKER PROP PLAYER-STEEPING PRESS TENDER [facility] 04-16-2011 meningococcal polysaccharide (groups A, C, Y and W-135) diphtheria toxoid conjugate vaccine (MCV4P) KAILYN MAST POKER PROP PLAYER-STEEPING PRESS TENDER [facility] 03-16-2007 meningococcal polysaccharide (groups A, C, Y and W-135) diphtheria toxoid conjugate vaccine (MCV4P) KAILYN MAST POKER PROP PLAYER-STEEPING PRESS TENDER [facility] 03-10-2006 tetanus toxoid, redu victor manuel diphtheria toxoid, and acellular pertussis vaccine, adsorbed KAILYN MAST POKER PROP PLAYER-STEEPING PRESS TENDER [facility] 05-21-2004 influenza virus vaccine, unspecified formulation KAILYN MAST POKER PROP PLAYER-STEEPING PRESS TENDER [facility] 06-16-2003 influenza virus vaccine, unspecified formulation KAILYN MAST POKER PROP PLAYER-STEEPING PRESS TENDER [facility] 05-13-2002 influenza virus vaccine, unspecified formulation KAILYN MAST POKER PROP PLAYER-STEEPING PRESS TENDER [facility] 07-16-2001 influenza virus vaccine, unspecified formulation KAILYN MAST POKER PROP PLAYER-STEEPING PRESS TENDER [facility] 06-16-2001 influenza virus vaccine, unspecified formulation KAILYN MAST POKER PROP PLAYER-STEEPING PRESS TENDER [facility] 03-08-1999 measles/mumps/rubell a virus vaccine KAILYN MAST POKER PROP PLAYER-STEEPING PRESS TENDER [facility] 06-08-1996 haemophilus influenz ae type b vaccine, PRP-T conjugate KAILYN MAST POKER PROP PLAYER-STEEPING PRESS TENDER [facility] 06-08-1996 measles/mumps/rubell a virus vaccine KAILYN MAST POKER PROP PLAYER-STEEPING PRESS TENDER [facility] 1995 haemophilus influenz ae type b vaccine, PRP-T conjugate KAILYN MAST POKER PROP PLAYER-STEEPING PRESS TENDER [facility] 1995 hepatitis B pediatri c vaccine KAILYN MAST POKER PROP PLAYER-STEEPING PRESS TENDER [facility] 1995 haemophilus influenz ae type b vaccine, PRP-T conjugate KAILYN MAST POKER PROP PLAYER-STEEPING PRESS TENDER [facility] 1995 haemophilus influenz ae type b vaccine, PRP-T conjugate KAILYN MAST POKER PROP PLAYER-STEEPING PRESS TENDER [facility] 1995 hepatitis B pediatri c vaccine KAILYN MAST POKER PROP PLAYER-STEEPING PRESS TENDER [facility] 1995 hepatitis B pediatri c vaccine KAILYN MAST POKER PROP PLAYER-STEEPING PRESS TENDER [facility] Payers Date Payer Category Payer Self-pay 2024 Unknown [id number] 2024 Unknown [id number] 2021 Private Health Insurance [id number] 2021 Private Health Insurance [id number] 1995 Unknown [id number] 2.16.8 [id number] 1995 Unknown [id number] 2.16.8 [id number] 1995 Unknown [id number] 2.16.8 [id number] 1995 Unknown [id number] 2.16.8 [id number] 1995 Unknown [id number] 2.16.8 [id number] 1995 Unknown [id number] 2.16.8 [id number] 1995 Unknown [id number] 2.16.8 [id number] 1995 Unknown [id number] 2.16.8 [id number] 1995 Unknown [id number] 2.16.8 [id number] Unknown [id number] 2.16.8 [id number] Social History Date Type Detail Facility Start: 01-24-2023 End: 10-15-2024 Tobacco smoking status Never smoked tobacco (finding) [facility] Sex Assigned At Male [facility] Start: 09-22-2023 Tobacco use and exposure Smoke less tobacco non-user [facility] Start: 10-25-2023 End: 10-31-2023 History of Social function [facility] Start: 10-25-2023 End: 10-31-2023 Tobacco use panel [facility] National Score (1-10 0), lower number is lower risk 43 [facility] Start: 1995 Sex Assigned At Not on file [facility] Sexual O[facility] [place] [facility] Start: 01-24-2023 Sex Male (finding) [facility] Functional Status Date Assessment Result Facility 10-23-2023 Functional Status Up ad stephen Avery alas [facility] 10-23-2023 Functional Status Ambulation Ambulation i n Dobson [facility] 01-25-2023 Functional Status Standard Safet y ID band on, Call device within reach, Bed in low position, Wheels locked, Phone within reach, personal items within reach, Assistive devices within reach, Safety level maintained, Hazards removed from floor [facility] 01-24-2023 Functional Status Standard Safet y ID band on, Call device within reach, Bed in low position, Wheels locked, Upper/Half-Length side-rails up, personal items within reach, Visitor at bedside [facility] Mental Status Date Assessment Result Facility 10-23-2023 Mental Status Orientation Oriented x 4 [facility] 10-23-2023 Mental Status [facility] 01-25-2023 Mental Status Orientation Oriented x 4 [facility] 01-24-2023 Mental Status Orientation Oriented x 4 [facility] Clinical Notes 01-24-2023 to 11-29-2024 Note Date & Type Note Facility 11-29-2024 Note Exam Date Time Procedure Performing Provider Status 11/29/24 5:02 PM Echocardiogram, Adult - CV SHOSHANA PLAZA MD; Auth (Verified) [facility]03-06-2025 Instructions* Patient Instructions* Tammy Lemus APRN.STEEPING PRESS TENDER - 09/30/2024 8:21 AM EST ASSESSMENT/PLAN: 1. Viral bronchitis - ICD9: 466.0, ICD10: J20.8 - PREDNISONE 10 MG TABLET - ALBUTEROL SULFATE HFA 90 MCG/ACTUATION AEROSOL INHALER - INHALATIONAL SPACING DEVICE - continue tylenol/ibuprofen as needed. - Follow-up with your PCP in 3-5 days if symptoms have not improved or sooner if symptoms worsen - Discussed red flags and need for immediate medical evaluation if any occur. - Discussed supportive care treatment with fluids, rest and analgesia. - Discussed expected course of illness Tammy Lemus APRN.STEEPING PRESS TENDER [facility] [address] [place], [place] [address] Emergency Department Diagnosis: Assessment ACUTE BRONCHITIS: You have acute bronchitis. This means the airway passages in your lungs are inflamed. Bronchitis may be caused by viruses or bacteria. Inhaling cigarette smoke will always make it worse. Exposure to irritating chemicals or second hand smoke as well as allergies can contribute to bronchitis. Repeat episodes of bronchitis may cause lifelong lung problems. Acute bronchitis is usually treated with rest, fluids, cough medicine, and possibly antibiotics or inhaled medicine to open up the small airways. It is very important that you avoid smoke and drink increased amounts of fluids. A cool air vaporizer can help thin bronchial secretions. This makes it easier to cough and clear your chest. If you are a cigarette smoker, consider using nicotine gum or skin patches to help you withdraw. Recovery from bronchitis is often slow, but you should start feeling better after 2-3 days of treatment. Please call your doctor or return here if you have any of the following symptoms: Increased fever, chills, or chest pain. Severe shortness of breath or bloody sputum. Do not improve after 3 days of proper treatment. [facility] NoteHNO ID: [id number] Author: TAMMY LEMUS APRN.STEEPING PRESS TENDER Service: ? Author Type: Nurse Practitioner Type: Progress Notes Filed: 09/30/2024 08:21 Note Text: [facility] Subjective Beryl Lincoln is a 29 year old male. Cough Associated symptoms include shortness of breath. Pertinent negatives include no chest pain, no chills, no ear pain, no headaches, no sore throat and no wheezing. Beryl Lincoln is a 29 year old male who presents with a cough, chest congestion, and feeling short of breath for the past 3 days. He was diagnosed with the flu and had a high fever and chills for one day. He has felt better but cough persists and chest feels tight. He has taken tylenol and ibuprofen at home. Review of Systems Constitutional: Negative for chills, fatigue and fever. HENT: Negative for ear discharge, ear pain, sinus pain and sore throat. Respiratory: Positive for cough and shortness of breath. Negative for wheezing. Cardiovascular: Negative for chest pain. Neurological: Negative for headaches. Objective BP 121/77 Pulse (!) 55 Temp 36.3 ?C (97.3 ?F) Resp 18 Wt 94.2 kg (207 lb 10.8 oz) SpO2 97% BMI 29.80 kg/m? No past medical history on file. No past surgical history on file. ALLERGIES Patient has no known allergies. MEDICATIONS predniSONE (DELTASONE) 10 mg tablet Take 4 tabs daily for 3 days, then 2 tabs daily for 3 days, then 1 tab daily for 3 days with food. albuterol HFA (PROVENTIL HFA, VENTOLIN HFA) 90 mcg/actuation inhaler Inhale 2 Puffs as instructed every 4 hours as needed for wheezing/shortness of breath. Inhalational Spacing Device 1 Device one time only for 1 dose. Kzebovjhcapqrtw-Ugxqbblju-SJ (BROMFED DM) 2-30-10 mg/5 mL syrup Take 10 mL by mouth four times a day as needed. (Patient not taking: Reported on 09/30/2024) No family history on file. Social History Tobacco Use Smoking status: Never Smokeless tobacco: Never Substance Use Topics Drug use: Never Physical Exam Vitals and nursing note reviewed. Constitutional: General: He is not in acute distress. Appearance: Normal appearance. He is not ill-appearing. HENT: Right Ear: Tympanic membrane, ear canal and external ear normal. Left Ear: Tympanic membrane, ear canal and external ear normal. Nose: Nose normal. Mouth/Throat: Mouth: Mucous membranes are moist. Pharynx: Oropharynx is clear. No posterior oropharyngeal erythema. Cardiovascular: Rate and Rhythm: Normal rate and regular rhythm. Heart sounds: Normal heart sounds. Pulmonary: Effort: Pulmonary effort is normal. No respiratory distress. Breath sounds: Wheezing (few, scattered) present. No rales. Skin: General: Skin is warm and dry. Findings: No erythema or rash. Neurological: Mental Status: He is alert. Assessment and Plan Differential Diagnoses - bronchitis is more likely for the following reason(s): suggested by HANDP - pneumonia is less likely for the following reason(s): HANDP not suggestive Additional Tests or Interventions The following testing was considered but ultimately not selected after discussion with patient/family: xray The following medication(s) were considered but not ordered: antibiotics Disposition The patient was discharged. OTC Medications were advised: Procedures ASSESSMENT/PLAN: 1. Viral bronchitis - ICD9: 466.0, ICD10: J20.8 - PREDNISONE 10 MG TABLET - ALBUTEROL SULFATE HFA 90 MCG/ACTUATION AEROSOL INHALER - INHALATIONAL SPACING DEVICE - continue tylenol/ibuprofen as needed. - Follow-up with your PCP in 3-5 days if symptoms have not improved or sooner if symptoms worsen - Discussed red flags and need for immediate medical evaluation if any occur. - Discussed supportive care treatment with fluids, rest and analgesia. - Discussed expected course of illness [facility] Lemus [facility] History of Present illness Narrative* Tammy Lemus APRN.NIRAV - 09/30/2024 8:17 AM EST [facility] Subjective Beryl Lincoln is a 29 year old male. Cough Associated symptoms include shortness of breath. Pertinent negatives include no chest pain, no chills, no ear pain, no headaches, no sore throat and no wheezing. Beryl Lincoln is a 29 year old male who presents with a cough, chest congestion, and feeling short of breath for the past 3 days. He was diagnosed with the flu and had a high fever and chills for one day. He has felt better but cough persists and chest feels tight. He has taken tylenol and ibuprofen at home. Review of Systems Constitutional: Negative for chills, fatigue and fever. HENT: Negative for ear discharge, ear pain, sinus pain and sore throat. Respiratory: Positive for cough and shortness of breath. Negative for wheezing. Cardiovascular: Negative for chest pain. Neurological: Negative for headaches. Objective BP 121/77 Pulse (!) 55 Temp 36.3 C (97.3 F) Resp 18 Wt 94.2 kg (207 lb 10.8 oz) SpO2 97% BMI 29.80 kg/m No past medical history on file. No past surgical history on file. ALLERGIES Patient has no known allergies. MEDICATIONS predniSONE (DELTASONE) 10 mg tablet Take 4 tabs daily for 3 days, then 2 tabs daily for 3 days, then 1 tab daily for 3 days with food. albuterol HFA (PROVENTIL HFA, VENTOLIN HFA) 90 mcg/actuation inhaler Inhale 2 Puffs as instructed every 4 hours as needed for wheezing/shortness of breath. Inhalational Spacing Device 1 Device one time only for 1 dose. Bueilowmfrtiazi-Lhoevpyfl-EB (BROMFED DM) 2-30-10 mg/5 mL syrup Take 10 mL by mouth four times a day as needed. (Patient not taking: Reported on 09/30/2024) No family history on file. Social History Tobacco Use Smoking status: Never Smokeless tobacco: Never Substance Use Topics Drug use: Never Physical Exam Vitals and nursing note reviewed. Constitutional: General: He is not in acute distress. Appearance: Normal appearance. He is not ill-appearing. HENT: Right Ear: Tympanic membrane, ear canal and external ear normal. Left Ear: Tympanic membrane, ear canal and external ear normal. Nose: Nose normal. Mouth/Throat: Mouth: Mucous membranes are moist. Pharynx: Oropharynx is clear. No posterior oropharyngeal erythema. Cardiovascular: Rate and Rhythm: Normal rate and regular rhythm. Heart sounds: Normal heart sounds. Pulmonary: Effort: Pulmonary effort is normal. No respiratory distress. Breath sounds: Wheezing (few, scattered) present. No rales. Skin: General: Skin is warm and dry. Findings: No erythema or rash. Neurological: Mental Status: He is alert. Assessment and Plan Differential Diagnoses - bronchitis is more likely for the following reason(s): suggested by H&P - pneumonia is less likely for the following reason(s): H&P not suggestive Additional Tests or Interventions The following testing was considered but ultimately not selected after discussion with patient/family: xray The following medication(s) were considered but not ordered: antibiotics Disposition The patient was discharged. OTC Medications were advised: Procedures ASSESSMENT/PLAN: 1. Viral bronchitis - ICD9: 466.0, ICD10: J20.8 - PREDNISONE 10 MG TABLET - ALBUTEROL SULFATE HFA 90 MCG/ACTUATION AEROSOL INHALER - INHALATIONAL SPACING DEVICE - continue tylenol/ibuprofen as needed. - Follow-up with your PCP in 3-5 days if symptoms have not improved or sooner if symptoms worsen - Discussed red flags and need for immediate medical evaluation if any occur. - Discussed supportive care treatment with fluids, rest and analgesia. - Discussed expected course of illness Tammy Lemus APRN.STEEPING PRESS TENDER documented in this encounter[facility]01-27-[facility]25 NoteHNO ID: [id number] Author: RAYSHAWN VEGAS PA Service: ? Author Type: Physician Financial Planning Assistant Type: Progress Notes Filed: 08/23/2024 09:39 Note Text: This note was created using Clarity. Car Lincoln is a 29 year old male. HPI 29-year-old male presents for sore throat, congestion, cough, chills, fever x 3 days. Patient states he has not actually taken his temperature at home, but has felt feverish. He has had a productive cough, nasal congestion, sore throat for the past 3 days. No vomiting or diarrhea. Still able to eat and drink. Has used cough drops and ibuprofen for symptom treatment. He took ibuprofen last this morning. No sick contacts that he is aware of. No other complaint. History reviewed. No pertinent past medical history. No past surgical history on file. ALLERGIES Patient has no known allergies. MEDICATIONS No prescriptions on file. No family history on file. Social History Tobacco Use Smoking status: Never Smokeless tobacco: Never Substance Use Topics Drug use: Never Review of Systems Constitutional: Positive for chills and fever. HENT: Positive for congestion and sore throat. Respiratory: Positive for cough. Negative for shortness of breath. Gastrointestinal: Negative for diarrhea and vomiting. Objective BP 112/76 Pulse 117 Temp 37.7 ?C (99.8 ?F) (Tympanic) Resp 16 Wt 94.4 kg (208 lb 1.8 oz) SpO2 95% BMI 29.86 kg/m? Physical Exam Vitals and nursing note reviewed. Constitutional: General: He is not in acute distress. Appearance: Normal appearance. He is not toxic-appearing. HENT: Right Ear: Tympanic membrane and ear canal normal. Left Ear: Tympanic membrane and ear canal normal. Nose: Congestion present. Mouth/Throat: Mouth: Mucous membranes are moist. Pharynx: Posterior oropharyngeal erythema present. Tonsils: 2+ on the right. 2+ on the left. Eyes: Conjunctiva/sclera: Conjunctivae normal. Cardiovascular: Rate and Rhythm: Normal rate and regular rhythm. Pulmonary: Effort: Pulmonary effort is normal. Breath sounds: Normal breath sounds. No wheezing, rhonchi or rales. Skin: General: Skin is warm and dry. Neurological: Mental Status: He is alert. Assessment and Plan ASSESSMENT/PLAN: 1. Sore throat - ICD9: 462, ICD10: J02.9 (primary diagnosis) - suspect viral - Group A strep molecular testing negative - Discussed supportive care treatment with fluids, rest and analgesia. - The patient may also use warm salt water gargles, throat lozenges and/or OTC throat spray as needed. - STREP A MOLECULAR (POC) 2. URI, acute - ICD9: 465.9, ICD10: J06.9 - Discussed viral etiology and rationale for treatment. - Symptomatic treatment with prn analgesia - Supportive care with fluids and rest - RX bromfed - declines viral testing Diagnosis and treatment plan were discussed and questions were answered to the patient's satisfaction. Pt acknowledged understanding of concepts and follow up plan. Specific signs and symptoms that would indicate the need for higher level of care were discussed in detail warranting prompt ER evaluation. Rayshawn [place] [facility]01-27-2025 History of Present illness Narrative* Rayshawn [place], [place] - 08/23/2024 9:26 AM EST This note was created using Planexriter. Subjective Beryl Lincoln is a 29 year old male. HPI 29-year-old male presents for sore throat, congestion, cough, chills, fever x 3 days. Patient states he has not actually taken his temperature at home, but has felt feverish. He has had a productive cough, nasal congestion, sore throat for the past 3 days. No vomiting or diarrhea. Still able toeat and drink. Has used cough drops and ibuprofen for symptom treatment. He took ibuprofen last this morning. No sick contacts that he is aware of. No other complaint. History reviewed. No pertinent past medical history. No past surgical history on file. ALLERGIES Patient has no known allergies. MEDICATIONS No prescriptions on file. No family history on file. Social History Tobacco Use Smoking status: Never Smokeless tobacco: Never Substance Use Topics Drug use: Never Review of Systems Constitutional: Positive for chills and fever. HENT: Positive for congestion and sore throat. Respiratory: Positive for cough. Negative for shortness of breath. Gastrointestinal: Negative for diarrhea and vomiting. Objective BP 112/76 Pulse 117 Temp 37.7 C (99.8 F) (Tympanic) Resp 16 Wt 94.4 kg (208 lb 1.8 oz) SpO2 95% BMI 29.86 kg/m Physical Exam Vitals and nursing note reviewed. Constitutional: General: He is not in acute distress. Appearance: Normal appearance. He is not toxic-appearing. HENT: Right Ear: Tympanic membrane and ear canal normal. Left Ear: Tympanic membrane and ear canal normal. Nose: Congestion present. Mouth/Throat: Mouth: Mucous membranes are moist. Pharynx: Posterior oropharyngeal erythema present. Tonsils: 2+ on the right. 2+ on the left. Eyes: Conjunctiva/sclera: Conjunctivae normal. Cardiovascular: Rate and Rhythm: Normal rate and regular rhythm. Pulmonary: Effort: Pulmonary effort is normal. Breath sounds: Normal breath sounds. No wheezing, rhonchi or rales. Skin: General: Skin is warm and dry. Neurological: Mental Status: He is alert. Assessment and Plan ASSESSMENT/PLAN: 1. Sore throat - ICD9: 462, ICD10: J02.9 (primary diagnosis) - suspect viral - Group A strep molecular testing negative - Discussed supportive care treatment with fluids, rest and analgesia. - The patient may also use warm salt water gargles, throat lozenges and/or OTC throat spray as needed. - STREP A MOLECULAR (POC) 2. URI, acute - ICD9: 465.9, ICD10: J06.9 - Discussed viral etiology and rationale for treatment. - Symptomatic treatment with prn analgesia - Supportive care with fluids and rest - RX bromfed - declines viral testing Diagnosis and treatment plan were discussed and questions were answered to the patient's satisfaction. Pt acknowledged understanding of concepts and follow up plan. Specific signs and symptoms that would indicate the need for higher level of care were discussed in detail warranting prompt ER evaluation. PAMELLA Potter documented in this encounter[facility]07-[facility]-2024 Note ORIGINAL EXAMINATION: CT OF THE CHEST WITHOUT CONTRAST 02/03/2024 9:53 am TECHNIQUE: CT of the chest was performed without the administration of intravenous contrast. Multiplanar reformatted images are provided for review. Automated exposure control, iterative reconstruction, and/or weight based adjustment of the mA/kV was utilized to reduce the radiation dose to as low as reasonably achievable. COMPARISON: None. HISTORY: ORDERING SYSTEM PROVIDED HISTORY: Reason for Exam: cardiomyopathy FINDINGS: No acute osseous abnormality is visible. No acute osseous abnormality. 4 mm nodule is evident within the left lower lobe. No other nodule is identified and there is no focal consolidation. No pleural fluid seen. There is pre-vascular abnormal somewhat rounded soft tissue present measuring 2.5 cm in size. This is presumably a thymic abnormality. No calcification is evident within the lesion. No gross mediastinal adenopathy within the constraints of a noncontrast exam. No additional contributory abnormality seen. IMPRESSION: 1. Pre-vascular/thymic lesion. Nodular hyperplasia and thymoma are considerations. The precise nature of the abnormality is uncertain. Neoplasm is certainly not excluded. 2. Small left lower lobe pulmonary nodule of uncertain significance in a patient of this age. Follow-up as clinically appropriate. Interpreted by: Arley Salgado MD Preliminary Report By: Arley Salgado MD Electronically signed By Arley Salgado MD Dictated Date: 02/03/2024 1:45:34 PM Prelim Date: 02/03/2024 1:49:14 PM Sign Date: 02/03/2024 1:49:14 PM Ordering Provider: [facility]06-07-2024 Instructions* Patient Instructions* Chastity Cruz APRN.CNP - 01/02/2024 7:55 AM EDT Please update the office if symptoms continue to occur (via Mychart). documented in this encounterNew[facility]06-07-2024 History of Present illness Narrative* Chastity Cruz APRN.CNP - 01/02/2024 7:30 AM EDT Images from the original note were not included. [facility] [place] Follow[facility] Follow-up note January 02, 2024 HPI: Mr. Lincoln presents today for a follow-up visit. Per his previous visit on 10/31/23: R29.810 Facial weakness R07.89 Chest tightness R20.2 Tingling Comment: Pt presenting today for paresthesias. He reports that symptoms began roughly 2 to 3 monthsago at which time he was lifting weights when he felt a tingling sensation throughout his face. Symptoms returned roughly 1 month ago and were more severe. Tingling presented throughout his face as well as in his hands and he experienced facial weakness. The tingling radiated to his chest at which time he felt a tight sensation. This progressed to involve weakness of both hands. EMS was called but he did not present to the ED as symptoms resolved. However, this past he then experiencedfacial weakness and tingling in his hands and stomach while driving. He presented to the ED (outside [facility] and workup not available). The following day he again experienced similar symptoms while driving and was taken to [facility] ED. CT brain, blood work, EKG, CXR were all completed and unremarkable. He has had follow-up with his PCP who ordered lab work which he believes included a B12 and folate level. Exam today in office is essentially unremarkable with exception of minimal asymmetry to L mouth. Nosensory deficit, reflex abnormality noted. At this time etiology of symptoms is uncertain. Will proceed with further workup and plan as follows: -MRI brain WO/W valuate for central process contributing to facial weakness and tingling including demyelinating disease or CN abnormality. -Additional lab work including those listed below to evaluate for vitamin deficiency, autoimmune ds, thyroid disorder. -EEG to rule out seizure activity given tingling and facial weakness. -Extended hospital monitor to evaluate for arrhythmia. -Pt will fax or MyChart lab results completed by his PCP for review. He will follow-up after testing is complete or sooner should new or changing symptoms occur. Since October things have improved. No further episodes that have been unprompted. No episodes when driving. Did note some symptoms one month ago when lifting. Was trying to lift heavy. Did note some tingling at that time but no facial weakness and symptoms resolved quickly. Went to the gym earlier this week and didn't notice anything. No other new or changing symptoms. No concern by cardiology for bradycardia. Had echo. Will be ruling out cardiomyopathy. Has MRI of heart scheduled. Cut out 1DayLater energy drinks two months ago; had been drinking one to two per day. Had still been using energy drink packets from [employer] but has also cut these out as well. BP usually around 120/70's-60's. No past medical history on file. No past surgical history on file. No current outpatient medications on file prior to visit. No current facility-administered medications on file prior to visit. Social History Tobacco Use Smoking status: Never Smokeless tobacco: Never Substance Use Topics Drug use: Never ALLERGIES No Known Allergies Review of Systems: Cardiopulmonary: denies chest pain, palpitations Respiratory: denies shortness of breath GI/: denies recent nausea, vomiting, diarrhea, constipation, incontinence Musculoskeletal: denies weakness Back/spine: denies + low back or cervical pains Neuro: denies tremors, loss of feeling, dizziness, seizure, blackout, paresthesia, facial paresthesia, facial weakness, difficulty in speech, slurring of words, dysarthria, dysphagia, memory loss, headache, vision changes, loss of hearing Physical Exam: 01/02/24 0726 BP: 112/68 BP Site: Left Arm BP Position: Sitting BP Cuff Size: Regular Adult Pulse: (!) 55 SpO2: 100% Weight: 89.4 kg (197 lb 1.5 oz) Height: 177.8 cm (5' 10) Patient is alert and in no distress. Dress is appropriate. Mood is appropriate Breathing appears regular and unstressed Neurologic examination: Cognitively intact. No deficits. No formal MOCA performed. CN: Pupils equal and reactive to light, extraocular movements intact with no nystagmus, face is symmetric with no facial droop, facial sensation intact bilaterally to light touch. V1-3, hearing intact bilaterally, tongue is midline with no deviation, shoulder shrug is symmetric. Motor Examination: Right Upper Extremity: (of 5) Left Upper Extremity: (of 5) Shoulder Abduction: Deltoid (Ax/C5) 5 Shoulder Abduction 5 Elbow Flexion: Biceps (MC/R and C5/6) 5 Elbow Flexion 5 Elbow Extension: Triceps (R/C7) 5 Elbow Extension 5 Wrist Flexion (M/U and C6/7) 5 Wrist Flexion 5 Wrist Extension (R/C6) 5 Wrist Extension 5 Finger Abduction (U/T1) 5 Finger Abduction 5 Assistant Unit Forester 5 Assistant Unit Forester 5 Right Lower Extremity: (of 5) Left Lower Extremity: (of 5) Hip Flexion: Iliopsoas (F and L1/2) 5 Hip Flexion 5 Knee Extension: Quadriceps (F and L3/4) 5 Knee Extension 5 Knee Flexion: Hamstrings (S/S1) 5 Knee Flexion 5 Dorsiflexion: Tibialis Anterior (DP and L4/5) 5 Dorsiflexion 5 Plantarflexion: Gastrocnemius/Soleus (T and S1/2) 5 Plantarflexion 5 Reflexes: Right Extremities Left Lower Extremities: Triceps (C7-8R) 2 Triceps 2 Biceps (C5-6MC) 2 Biceps 2 Brachioradialis (C5-6R) 2 Brachioradialis 2 Patellar (L3-4F) 2 Patellar 2 Achilles (S1-2S) 2 Achilles 2 Ankle Clonus: negative bilaterally Mane's: negative bilaterally Sensory Intact to light touch upper and lower extremities bilaterally Temperature: intact in all extremities Normal toe and finger vibratory sensation Coordination: No dysmetria on finger to nose. No tremors noted. No drift seen. Gait normal in stance and pattern. 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 Predominant underlying rhythm was Sinus Rhythm. Isolated SVEs were rare (<1.0%), and no SVE Couplets or SVE Triplets were present. Isolated VEs were rare (<1.0%), VE Couplets were rare (<1.0%), and no VE Triplets were present. Ventricular Trigeminy was present. Symptom x 1 submitted: Lifting and I feel a small amount of tingling in my face. No droopage. Tingling in hands went away very quickly after stopping. During exercise. Nocturnal bradycardia noted but none documented during waking hours. Latest Ref Rng 11/14/2023 Hemoglobin A1C 4.3 - 5.6 % 5.5 Estimated Average Glucose mg/dL 111 BARB Negative Negative Vitamin B1 (TDP), Whole Blood 84.3 - 213.3 nmol/L 206.7 Vitamin B6, Plasma 20.0 - 125.0 nmol/L 312.0 (H) TSH 0.270 - 4.200 mIU/L 3.880 Legend: (H) High MRI Report MRI BRAIN WO/W IVCON Exam End: 11/27/2023 2:15 PM (Final result) Narrative: * * *Final Report* * * DATE OF EXAM: Nov 27 2023 2:10PM [facility] [id number] - MRI BRAIN WO/W IVCON / PROCEDURE REASON: multiple diagnoses * * * * Physician Interpretation * * * * EXAMINATION: MRI BRAIN WO/W IVCON CLINICAL HISTORY: Demyelinating disease of the central nervous system. TECHNIQUE: Demyelinating protocol brain MRI without and with contrast. MQ: [id number] Contrast: 17 mL Dotarem IV COMPARISON: None. RESULT: Acute Change: There is no evidence of restricted diffusion to suggest an acute infarct. Hemorrhage: No evidence of prior parenchymal hemorrhage on the gradient echo images. Mass Lesion/ Mass Effect: No evidence of an intracranial mass or extra-axial fluid collection. No abnormal parenchymal or leptomeningeal enhancement is noted following contrast administration. No significant mass effect. Chronic Change: The white matter is within normal limits of signal intensity for age. Parenchyma: No significant volume loss for age. The brain parenchyma is otherwise within normal limits of signal intensity and morphology. Ventricles: Normal caliber and morphology. Skull Base: Hypothalamic and pituitary region are grossly normal. Craniocervical junction is normal. No significant marrow replacement process. Vasculature: Major intracranial arterial structures, and dural venous sinuses show typical flow void, suggesting patency by spin echo criteria. Other: The visualized paranasal sinuses and mastoid air cells are clear. The orbits and extracranial soft tissues are unremarkable. Impression: IMPRESSION: Normal MRI of the brain without and with contrast Inspector Plating: [facility] Transcribe Date/Time: Nov 27 2023 2:25P Dictated by : VICTOR HUGO MADISON MD This examination was interpreted and the report reviewed and electronically signed by: VICTOR HUGO MADISON MD on Nov 27 2023 2:27PM EST Assessment/Plan: R29.810 Facial weakness (primary encounter diagnosis) R07.89 Chest tightness R20.2 Tingling Comment: Pt previously seen for paresthesias first presenting as a tingling sensation throughout his face when lifting weights. He experienced return of symptoms roughly 1 month later throughout his face and hands and noted associated facial weakness. At that time tingling also radiated to his chest where he felt chest tightness and ultimately weakness in both hands. He experienced a third episode of facial weakness and tingling in hands and stomach when driving at which time he was taken to the ED and CT brain, blood work, EKG, CXR were all completed and unremarkable. In interim, he has completed MRI brain WO/W without findings that would contribute to symptoms. Lab work also completed with significantly elevated B6 but normal A1c, TSH, B1, BARB. He has since stopped consumption of energydrinks/supplements and will reassess B6 level today. Additionally, he underwent extended hospital monitor to evaluate for arrhythmia. He was noted to be bradycardic (HR in 20s) and he has since had fol low-up with cardiology resulting in echo and upcoming cardiac MRI. Lastly, EEG was ordered but deferred as symptoms improved with exception of those with known trigger. Today, he reports 1 further episode of tingling without other associated symptoms when lifting, however, he has attempted to lift after this episode without symptoms. Last presentation of symptoms was roughly 1 month ago. At this time as symptoms have continued to improve, he will continue to monitor symptoms. If symptoms return, he will notify the office via Circle Inchart at which time further testingmay be considered. If symptoms continue to improve and ultimately resolve, he will follow-up with neurology as needed. Office Visit on 01/02/24 VITAMIN B6/PYRIDOXIN Chastity Cruz APRN.CNP I spent a total of 23 minutes on the date of the service which included preparing to see the patient, [id number] patient care, completing clinical documentation, obtaining and/or reviewing separately obtained history, performing a medically appropriate examination, counseling and educating the pat ient/family/caregiver, and ordering medications, tests, or procedures. documented in this encounterNew[facility]06-07-2024 NoteHNO ID: [id number] Author: CHASTITY CRUZ APRN.CNP Service: ? Author Type: Nurse Practitioner Type: Progress Notes Filed: 01/02/2024 07:55 Note Text: [facility] [place] Follow-up Visit Follow-up note January 02, 2024 HPI: Mr. Lincoln presents today for a follow-up visit. Per his previous visit on 10/31/23: R29.810 Facial weakness R07.89 Chest tightness R20.2 Tingling Comment: Pt presenting today for paresthesias. He reports that symptoms began roughly 2 to 3 months ago at which time he was lifting weights when he felt a tingling sensation throughout his face. Symptoms returned roughly 1 month ago and were more severe. Tingling presented throughout his face as well as in his hands and he experienced facial weakness. The tingling radiated to his chest at which time he felt a tight sensation. This progressed to involve weakness of both hands. EMS was called but he did not present to the ED as symptoms resolved. However, this past he then experienced facial weakness and tingling in his hands and stomach while driving. He presented to the ED (outside [facility] and workup not available). The following day he again experienced similar symptoms while driving and was taken to [facility] ED. CT brain, blood work, EKG, CXR were all completed and unremarkable. He has had follow-up with his PCP who ordered lab work which he believes included a B12 and folate level. Exam today in office is essentially unremarkable with exception of minimal asymmetry to L mouth. No sensory deficit, reflex abnormality noted. At this time etiology of symptoms is uncertain. Will proceed with further workup and plan as follows: -MRI brain WO/W valuate for central process contributing to facial weakness and tingling including demyelinating disease or CN abnormality. -Additional lab work including those listed below to evaluate for vitamin deficiency, autoimmune ds, thyroid disorder. -EEG to rule out seizure activity given tingling and facial weakness. -Extended hospital monitor to evaluate for arrhythmia. -Pt will fax or MyChart lab results completed by his PCP for review. He will follow-up after testing is complete or sooner should new or changing symptoms occur. Since October things have improved. No further episodes that have been unprompted. No episodes when driving. Did note some symptoms one month ago when lifting. Was trying to lift heavy. Did note some tingling at that time but no facial weakness and symptoms resolved quickly. Went to the gym earlier this week and didn't notice anything. No other new or changing symptoms. No concern by cardiology for bradycardia. Had echo. Will be ruling out cardiomyopathy. Has MRI of heart scheduled. Cut out 1[employer] energy drinks two months ago; had been drinking one to two per day. Had still been using energy drink packets from [employer] but has also cut these out as well. BP usually around 120/70's-60's. No past medical history on file. No past surgical history on file. No current outpatient medications on file prior to visit. No current facility-administered medications on file prior to visit. Social History Tobacco Use Smoking status: Never Smokeless tobacco: Never Substance Use Topics Drug use: Never ALLERGIES No Known Allergies Review of Systems: Cardiopulmonary: denies chest pain, palpitations Respiratory: denies shortness of breath GI/: denies recent nausea, vomiting, diarrhea, constipation, incontinence Musculoskeletal: denies weakness Back/spine: denies + low back or cervical pains Neuro: denies tremors, loss of feeling, dizziness, seizure, blackout, paresthesia, facial paresthesia, facial weakness, difficulty in speech, slurring of words, dysarthria, dysphagia, memory loss, headache, vision changes, loss of hearing Physical Exam: 01/02/24 0726 BP: 112/68 BP Site: Left Arm BP Position: Sitting BP Cuff Size: Regular Adult Pulse: (!) 55 SpO2: 100% Weight: 89.4 kg (197 lb 1.5 oz) Height: 177.8 cm (5' 10) Patient is alert and in no distress. Dress is appropriate. Mood is appropriate Breathing appears regular and unstressed Neurologic examination: Cognitively intact. No deficits. No formal MOCA performed. CN: Pupils equal and reactive to light, extraocular movements intact with no nystagmus, face is symmetric with no facial droop, facial sensation intact bilaterally to light touch. V1-3, hearing intact bilaterally, tongue is midline with no deviation, shoulder shrug is symmetric. Motor Examination: Right Upper Extremity: (of 5) Left Upper Extremity: (of 5) Shoulder Abduction: Deltoid (Ax/C5) 5 Shoulder Abduction 5 Elbow Flexion: Biceps (MC/R and C5/6) 5 Elbow Flexion 5 Elbow Extension: Triceps (R/C7) 5 Elbow Extension 5 Wrist Flexion (M/U and C6/7) 5 Wrist Flexion 5 Wrist Extension (R/C6) 5 Wrist Extension 5 Finger Abduction (U/T1) 5 Finger Abduction 5 Assistant Unit Forester 5 Assistant Unit Forester 5 Right Lower Ext (more content not included)...[facility] [place] 11-29-2023 Note. MICRO - Microbiology PROCEDURE: Urine Culture [*1] SOURCE: Urine, Clean Catch BODY SITE: COLLECTED DATE/TIME: 11/27/2023 11:11 EDT RECEIVED DATE/TIME: 11/27/2023 19:36 EDT START DATE/TIME: 11/27/2023 19:37 EDT FREE TEXT SOURCE: FINAL REPORTS Final Report [] Verified Date/Time/Personnel: 11/29/2023 07:26 EDT No growth at 48 hours. PRELIMINARY REPORTS Preliminary Report [] Verified Date/Time/Personnel: 11/28/2023 09:52 EDT No growth to date Performing Locations *1: This test was performed at: [facility], [address] [place] [address], [id number] , [facility] ([place])11-27-2023 History of Present illness Narrative* Dana Adams RT(R) - 11/27/2023 1:40 PM EDT Radiology Service Progress Note DATE OF SERVICE: November 27, 2023 TIME: 1:49 PM PATIENT IDENTITY VERIFICATION COMPLETED USING TWO (2) STANDARD IDENTIFIERS: Name and Date of confirmed by patient verbally. FALL SCREENING: Has the patient had 2 falls in the last year or 1 fall with injury or currently using an Ambulatory Assistive Device (Walker, Cane, Wheelchair, Crutches, etc.)? No PATIENT GENDER DATA: Male PATIENT RELEVANT IMPLANT DATA REVIEWED: Yes PATIENT PRESENTS WITH AN IMPLANTABLE OR ATTACHED MENTAL HEALTH COORDINATOR: No ALLERGIES: Reviewed and unchanged CONTRAST ALLERGY: NO. EXAM: MRI - CONTRAST TYPE: GROUP II PERIPHERAL IV DATA: Ambulatory: A peripheral IV was started in the Right antecubital site with a Angio cath: 22 gauge. RADIOLOGY DEPARTMENT: MR; Exam(s) Completed: Head: Routine Brain SIGNATURE: SRINIVAS Moe) PATIENT NAME: Beryl Lincoln DATE: November 27, 2023 TIME: 1:49 PM [facility] NoteHNO ID: [id number] Author: DANA ADAMS RT(R) Service: ? Author Type: Technologist Type: Progress Notes Filed: 11/27/2023 13:49 Note Text: Radiology Service Progress Note DATE OF SERVICE: November 27, 2023 TIME: 1:49 PM PATIENT IDENTITY VERIFICATION COMPLETED USING TWO (2) STANDARD IDENTIFIERS: Name and Date of confirmed by patient verbally. FALL SCREENING: Has the patient had 2 falls in the last year or 1 fall with injury or currently using an Ambulatory Assistive Device (Walker, Cane, Wheelchair, Crutches, etc.)? No PATIENT GENDER DATA: Male PATIENT RELEVANT IMPLANT DATA REVIEWED: Yes PATIENT PRESENTS WITH AN IMPLANTABLE OR ATTACHED MENTAL HEALTH COORDINATOR: No ALLERGIES: Reviewed and unchanged CONTRAST ALLERGY: NO. EXAM: MRI - CONTRAST TYPE: GROUP II PERIPHERAL IV DATA: Ambulatory: A peripheral IV was started in the Right antecubital site with a Angio cath: 22 gauge. RADIOLOGY DEPARTMENT: MR; Exam(s) Completed: Head: Routine Brain SIGNATURE: RT Payal(R) PATIENT NAME: Beryl Lincoln DATE: November 27, 2023 TIME: 1:49 [facility]05-02-2024 Note ORIGINAL EXAMINATION: LIMITED ABDOMINAL ULTRASOUND11/27/2023 7:32 am Limited ultrasound of the abdomen attention right upper quadrant COMPARISON: None HISTORY: ORDERING SYSTEM PROVIDED HISTORY: Reason for Exam: RUQ pain, FINDINGS: The liver is normal in size and echogenicity. No suspicious focal lesions are seen. There is no intrahepatic bile duct dilatation. The common duct is 3.4 mm at the jhon hepatis. There is normal antegrade flow in the main portal vein. The gallbladder is normally distended without calculus, wall thickening or tenderness. The visualized pancreas is normal in size and echogenicity. Some portions of the pancreas are obscured by bowel gas. No ascites is seen in the Barrera's pouch. Limited survey images of the right kidney shows normal cortical thickness and echogenicity and no pelvocaliectasis. The visualized abdominal aorta and IVC are normal in caliber. IMPRESSION: Negative ultrasound. No acute findings.. Interpreted by: Zac Molina MD Preliminary Report By: Zac Molina MD Electronically signed By Zac Molina MD Dictated Date: 11/27/2023 2:59:22 PM Prelim Date: 11/27/2023 3:00:22 PM Sign Date: 11/27/2023 3:00:22 PM Ordering Provider: [facility]04-22-2024 Note HNO ID: [id number] Author: FENG DAVIS MD Service: ? Author Type: Physician Type: Progress Notes Filed: 11/17/2023 18:37 Note Text: Patient presents with: Penis/Scrotum Problem: burning x 2 days and blood in stool x this am HPI: Having burning in the urethra for a days. Dysuria: Yes Frequency: Yes Hematuria: No Discharge: No Genital lesion: No Nausea: No Fever or chills: has had some chills Back pain: routine bilateral lower Abdominal pain: has had 2 months of abdominal pains since a bad bout of gastroenteritis. He has noticed some pressure in the lower quadrants today. Today he noticed blood on the toilet paper and on one piece of stool. Denies nausea, constipation, diarrhea, melena. He has had a hemorrhoid in the past but has not noticed any pain or masses recently. Prior UTI: No Personal history of kidney stones: No No personal or family history of ulcerative colitis or Crohn's disease. MEDICATIONS: No current outpatient medications on file. No current facility-administered medications for this visit. ALLERGIES: ALLERGIES No Known Allergies VITALS: BP 122/70 Pulse 68 Temp 36.4 ?C (97.5 ?F) Resp 16 Wt 84.7 kg (186 lb 11.7 oz) SpO2 96% BMI 26.79 kg/m? PHYSICAL EXAM: GEN: NAD HEENT: EOMI, conjunctiva clear, HEART: regular rate and rhythm, no murmurs LUNGS: clear to auscultation, no wheezes or crackles, no increased WOB ABDOMEN: Soft, nondistended, no masses, no suprapubic tenderness BACK: No CVA tenderness RECTAL: hemorrhoid at the left anal verge. No ulceration or induration. ASSESSMENT/PLAN: 1. Penis pain - ICD9: 607.9, ICD10: N48.89 (primary diagnosis) - UA DIP, URINE (POC) - negative, normal Will send - URINE CULTURE Declines GC/Chl testing. He is monogamous with his . No recent vagina intercourse. 2. Blood in stool - ICD9: 578.1, ICD10: K92.1 3. Hemorrhoids, unspecified hemorrhoid type - ICD9: 455.6, ICD10: K64.9 He will treat with hemorrhoid cream. Follow up with PCP, GI, or general surgery for recurrent symptoms. Follow up in the ER with increasing abdominal pain, dizziness, or fever. Feng Davis, [facility]04-22-2024 History of Present illness Narrative* Feng Davis MD - 11/17/2023 6:08 PM EDT Patient presents with: Penis/Scrotum Problem: burning x 2 days and blood in stool x this am HPI: Having burning in the urethra for a days. Dysuria: Yes Frequency: Yes Hematuria: No Discharge: No Genital lesion: No Nausea: No Fever or chills: has had some chills Back pain: routine bilateral lower Abdominal pain: has had 2 months of abdominal pains since a bad bout of gastroenteritis. He has noticed some pressure in the lower quadrants today. Today he noticed blood on the toilet paper and on one piece of stool. Denies nausea, constipation, diarrhea, melena. He has had a hemorrhoid in the past but has not noticed any pain or masses recently. Prior UTI: No Personal history of kidney stones: No No personal or family history of ulcerative colitis or Crohn's disease. MEDICATIONS: No current outpatient medications on file. No current facility-administered medications for this visit. ALLERGIES: ALLERGIES No Known Allergies VITALS: BP 122/70 Pulse 68 Temp 36.4 C (97.5 F) Resp 16 Wt 84.7 kg (186 lb 11.7 oz) SpO2 96% BMI 26.79 kg/m PHYSICAL EXAM: GEN: NAD HEENT: EOMI, conjunctiva clear, HEART: regular rate and rhythm, no murmurs LUNGS: clear to auscultation, no wheezes or crackles, no increased WOB ABDOMEN: Soft, nondistended, no masses, no suprapubic tenderness BACK: No CVA tenderness RECTAL: hemorrhoid at the left anal verge. No ulceration or induration. ASSESSMENT/PLAN: 1. Penis pain - ICD9: 607.9, ICD10: N48.89 (primary diagnosis) - UA DIP, URINE (POC) - negative, normal Will send - URINE CULTURE Declines GC/Chl testing. He is monogamous with his . No recent vagina intercourse. 2. Blood in stool - ICD9: 578.1, ICD10: K92.1 3. Hemorrhoids, unspecified hemorrhoid type - ICD9: 455.6, ICD10: K64.9 He will treat with hemorrhoid cream. Follow up with PCP, GI, or general surgery for recurrent symptoms. Follow up in the ER with increasing abdominal pain, dizziness, or fever. Feng Davis MD [facility]24 Miscellaneous Notes* Telephone Encounter - Chastity Cruz APRN.CNP - 11/13/2023 4:49 PM EDT Called patient. Discussed recommendation to present to the ED. He reports appointment scheduled fortomorrow with cardiology. Ok with appointment tomorrow. * Telephone Encounter - Chastity Cruz APRN.CNP - 11/13/2023 4:31 PM EDT Call made to patient regarding hospital monitor preliminary results. No answer and VM left for patient. [facility] History of Present illness Narrative* Chastity Cruz APRN.CNP - 10/31/2023 12:30 PM EDT Images from the original note were not included. [facility] [place] New Patient Evaluation CHIEF COMPLAINT: N/t Beryl Lincoln is a 28 year old accompanied by self. Consult was requested by Dr. Alfaro for an opinion regarding above CC. My final impression and recommendations will be communicated back to the requesting physician by way of the shared medical record or fax. October 30, 2023 HPI: Mr. Lincoln presents today secondary to issues of n/t. He states that sx began about 2-3 months ago. At the end of heavy lifts his face would feel off. Aylett mouth puckering. Tingling throughout whole face. Would do cardio later and this would resolve. About one month ago became very severe. Aylett face puckering and drooping on both sides. Hands were numb and tingling. Went home and sx worsened on drive home. Started to radiate to his chest. By the time he got home lost the ability to bend his fingers. EMS was called and sx started to resolve. BP was 170 at the time. EMS asked if he felt he needed to go to the ED but he chose not to go as he was scheduled with his PCP. Two weeks prior did have a bad case of food poisoning. Very dehydrated and malnourished. Lost 15-20lbs. PCP thought maybe exerting himself too much too quickly. Toned down weights and took time between lifting and no more issues at the gym. Then last sx happened when driving. Partial facial weakness bilaterally. No eye/forehead involvement. Tinglingin hands and in stomach (middle of stomach near sternum). PCP told him to go to the ED. Had VS checked and lab work, EKG. No findings. Then Friday morning happened again after driving 20 min. Pulled over and called EMS. Was taken to [facility] and had CT and blood work, EKG, CXR. States doctor mentioned vitamin deficiency but did not check labs. Did get supplements the same day. Relaxed all weekend and no episodes; thought vit were working. Per ED note on 10/24/23: MDM / Disposition / Plan Patient is a 28-year-old male with no significant past medical history, presenting to the ED for complaints of facial numbness and tingling, droop, and hand numbness and tingling bilateral. Patient is alert and oriented x 3, sitting erect in cot, appears in no acute distress. Mildly anxious. PERRLA. No focal deficit. Respirations even unlabored, lung sounds clear. S1-S2 present without tachycardia. Abdomen soft, nontender nondistended. Moving all 4 extremities without any peripheral edema or numbness or tingling. Speaking in full sentences without difficulty. Patient had a ED workup completed showing negative VAISHALI, negative D-dimer normal normal magnesium. Unremarkable CBC and CMP. He had a chest x-ray showing no acute process as well as a CT brain which was benign. Patient was educated on results of diagnostics. Recommended outpatient blood pressure monitoring, follow-up with PCP. Also established patient with neurology as these are neurological symptoms without deficits or diagnostics without any acute event he should be reevaluated. Patient educated on potential causes such as vitamin deficit. Patient and friend at bedside are both agreeable to discharge plan and verbalized understanding. Then this Tues had blood work completed. And will be getting abd US. On his way back from work again he had similar sx; tingling in hands and pulling in stomach. Got out of the car and sx stopped then felt better. Longest episode was up to 40 min. Peak is about 5-10 min then gradually improves in about 25-30 min. Most recent was only a few min. Had B12 and folate checked. No vision changes, speech changes. Mouth drooping so does have some speech which is off. No focal weakness. Never had issues with legs. No b/b changes. No head injuires/neck injuries. No neuro ds. Mother with Lupus; dx 5-10 years ago. Mother also withstroke in early 40's. No family seizure hx. No diet changes. No travel out of the country. Had severe diarrhea during food poisoning. No thyroid ds, DM. No cardiac ds in family. No LOC. No cognitive changes or confusion during events. Pulse was 50 upon checking when he got home at one point. Was racing in ED. BP has been in 170's multiple times. No hx of elevated BP. Has been checking BP at home and usually 115-130. HR's between 50-60. Alcohol: Denies Tobacco: Denies Drug: Denies No past medical history on file. No past surgical history on file. No current outpatient medications on file prior to visit. No current facility-administered medications on file prior to visit. Social History Tobacco Use Smoking status: Never Smokeless tobacco: Never Substance Use Topics Drug use: Never ALLERGIES No Known Allergies Review of Systems: ENT: denies loss of hearing, vertigo Vision: denies blurring vison, double vision/diplopia Dermatologic: denies rash Cardiopulmonary: denies chest pain, palpitations Respiratory: denies shortness of breath GI: denies recent nausea, vomiting, diarrhea, constipation : denies incontinence Psych: denies depression, anxiety Sleep: denies issues with sleeping Heme: denies easy bruising/bleeding Musculoskeletal: denies weakness, + joint ache/pain (intermittently 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 Dress is appropriate. Mood is appropriate Breathing appears regular and unstressed Neurologic examination: Cognitively intact. No deficits. No formal MOCA performed. CN: Pupils equal and reactive to light, extraocular movements intact with no nystagmus, minimal L mouth asymmetry, facial sensation intact bilaterally to light touch. V1-3, hearing intact bilaterally, symmetric evaluation of the soft palate, tongue is midline with no deviation, shoulder shrug is symmetric. Motor Examination: Right Upper Extremity: (of 5) Left Upper Extremity: (of 5) Shoulder Abduction: Deltoid (Ax/C5) 5 Shoulder Abduction 5 Elbow Flexion: Biceps (MC/R and C5/6) 5 Elbow Flexion 5 Elbow Extension: Triceps (R/C7) 5 Elbow Extension 5 Wrist Flexion (M/U and C6/7) 5 Wrist Flexion 5 Wrist Extension (R/C6) 5 Wrist Extension 5 Finger Abduction (U/T1) 5 Finger Abduction 5 Assistant Unit Forester 5 Assistant Unit Forester 5 Right Lower Extremity: (of 5) Left Lower Extremity: (of 5) Hip Flexion: Iliopsoas (F and L1/2) 5 Hip Flexion 5 Knee Extension: Quadriceps (F and L3/4) 5 Knee Extension 5 Knee Flexion: Hamstrings (S/S1) 5 Knee Flexion 5 Dorsiflexion: Tibialis Anterior (DP and L4/5) 5 Dorsiflexion 5 Plantarflexion: Gastrocnemius/Soleus (T and S1/2) 5 Plantarflexion 5 Reflexes: Right Extremities Left Lower Extremities: Triceps (C7-8R) 2 Triceps 2 Biceps (C5-6MC) 2 Biceps 2 Brachioradialis (C5-6R) 2 Brachioradialis 2 Patellar (L3-4F) 2 Patellar 2 Achilles (S1-2S) 2 Achilles 2 Ankle Clonus: negative bilaterally Mane's: negative bilaterally Sensory Intact to light touch upper and lower extremities bilaterally Pinprick: intact in all extremities Temperature: intact in all extremities Normal proprioception (toe position and thumb) Normal toe and finger vibratory sensation Coordination: No dysmetria on finger to nose. No tremors noted. No drift seen. Gait normal in stance and pattern. Labs/studies: Latest Ref Rng 10/24/2023 WBC 3.70 - 11.00 k/uL 5.39 RBC 4.20 - 6.00 m/uL 5.34 Hemoglobin 13.0 - 17.0 g/dL 16.2 Hematocrit 39.0 - 51.0 % 45.8 MCV 80.0 - 100.0 fL 85.8 MCH 26.0 - 34.0 pg 30.3 MCHC 30.5 - 36.0 g/dL 35.4 RDW-CV 11.5 - 15.0 % 13.1 Platelet Count 150 - 400 k/uL 215 MPV 9.0 - 12.7 fL 9.4 Neut% % 45.3 Abs Neut (ANC) 1.45 - 7.50 k/uL 2.44 Lymph% % 28.4 Abs Lymph 1.00 - 4.00 k/uL 1.53 Burleson% % 5.9 Abs Burleson <0.87 k/uL 0.32 Eosin% % 18.7 Abs Eosin <0.46 k/uL 1.01 (H) Baso% % 1.3 Abs Baso <0.11 k/uL 0.07 Immature Gran % % 0.4 IMMATURE GRANS (ABS) <0.10 k/uL <0.03 NRBC /100 WBC 0.0 Absolute nRBC <0.01 k/uL <0.01 DTYPE Auto Protein, Total 6.3 - 8.0 g/dL 6.7 Albumin 3.9 - 4.9 g/dL 4.4 Calcium 8.5 - 10.2 mg/dL 9.9 Bilirubin, Total 0.2 - 1.3 mg/dL 1.1 Alkaline Phosphatase 38 - 113 U/L 49 AST 14 - 40 U/L 26 ALT 10 - 54 U/L 23 Glucose 74 - 99 mg/dL 103 (H) BUN 9 - 24 mg/dL 10 Creatinine 0.73 - 1.22 mg/dL 1.06 Sodium 136 - 144 mmol/L 144 Potassium 3.7 - 5.1 mmol/L 4.3 Chloride 97 - 105 mmol/L 106 (H) CO2 22 - 30 mmol/L 28 Anion Gap 9 - 18 mmol/L 10 eGFR >=60 mL/min/1.73m 98 Magnesium 1.7 - 2.3 mg/dL 2.0 VAISHALI High Sensitivity <12 ng/L 10 d Dimer <500 ng/mL FEU <190 Legend: (H) High CT Brain Report CT BRAIN WO IVCON Exam End: 10/24/2023 10:19 AM (Final result) Narrative: * * *Final Report* * * DATE OF EXAM: Oct 24 2023 10:18AM [facility] [id number] - CT BRAIN WO IVCON / PROCEDURE REASON: Numbness or tingling, paresthesia (Ped 0-18y) * * * * Physician Interpretation * * * * EXAMINATION: CT BRAIN WO IVCON CLINICAL HISTORY: Patient comes planes of facial droop and hand numbness and tingling TECHNIQUE: Serial axial images without IV contrast were obtained from the vertex to the foramen magnum. MQ: [id number] CT Radiation dose: Integrated Dose-Length Product (DLP) for this visit = 748 mGy*cm CT Dose Reduction Employed: Automated exposure control(AEC) and iterative recon COMPARISON: None. RESULT: Post-operative change: None. Acute change: No evidence of an acute infarct or other acute parenchymal process. Hemorrhage: No evidence of acute intracranial hemorrhage. ECASS hemorrhagic transformation score: Not Applicable Mass Lesion / Mass Effect: There is no evidence of an intracranial mass or extraaxial fluid collection. No significant mass effect. Chronic change: None apparent. Parenchyma: There is no significant volume loss. The brain parenchyma is otherwise within normal limits for age. Ventricles: The ventricles are within normal limits of size and configuration for age. Paranasal sinuses and skull base: The visualized paranasal sinuses are grossly clear. The skull base and imaged soft tissues are unremarkable. Manager Heart Failure (topogram) images: Unremarkable. Impression: IMPRESSION: Unremarkable CT brain Inspector Plating: CHERI Transcribe Date/Time: Oct 24 2023 10:19A Dictated by : SHOSHANA CRAIG MD This examination was interpreted and the report reviewed and electronically signed by: SHOSHANA CRAIG MD on Oct 24 2023 10:23AM EST Assessment/Plan: R29.810 Facial weakness R07.89 Chest tightness R20.2 Tingling Comment: Pt presenting today for paresthesias. He reports that symptoms began roughly 2 to 3 monthsago at which time he was lifting weights when he felt a tingling sensation throughout his face. Symptoms returned roughly 1 month ago and were more severe. Tingling presented throughout his face as well as in his hands and he experienced facial weakness. The tingling radiated to his chest at which time he felt a tight sensation. This progressed to involve weakness of both hands. EMS was called but he did not present to the ED as symptoms resolved. However, this past he then experiencedfacial weakness and tingling in his hands and stomach while driving. He presented to the ED (outside [facility] and workup not available). The following day he again experienced similar symptoms while driving and was taken to [facility] ED. CT brain, blood work, EKG, CXR were all completed and unremarkable. He has had follow-up with his PCP who ordered lab work which he believes included a B12 and folate level. Exam today in office is essentially unremarkable with exception of minimal asymmetry to L mouth. Nosensory deficit, reflex abnormality noted. At this time etiology of symptoms is uncertain. Will proceed with further workup and plan as follows: -MRI brain WO/W valuate for central process contributing to facial weakness and tingling including demyelinating disease or CN abnormality. -Additional lab work including those listed below to evaluate for vitamin deficiency, autoimmune ds, thyroid disorder. -EEG to rule out seizure activity given tingling and facial weakness. -Extended hospital monitor to evaluate for arrhythmia. -Pt will fax or MyChart lab results completed by his PCP for review. He will follow-up after testing is complete or sooner should new or changing symptoms occur. Office Visit on 10/31/23 MRI BRAIN WO/W IVCON BARB BY IFA WITH REFLEX VITAMIN B1 (THIAMINE), WHOLE BLOOD VITAMIN B6/PYRIDOXIN TSH BLD HGB A1C OUTSIDE VENDOR CARDIAC OUTPATIENT EXTENDED RHYTHM RECORDING (WITHOUT TELEMETRY) EPIL EEG ROUTINE Chastity Cruz APRN.NIRAV I spent a total of 55 minutes on the date of the service which included preparing to see the patient, dihz-hk-uttx patient care, completing clinical documentation, obtaining and/or reviewing separately obtained history, performing a medically appropriate examination, counseling and educating the pat ient/family/caregiver, and ordering medications, tests, or procedures. Portions of this note were created with electronic dictation and errors in spelling, syntax, and meaning may have occurred. [facility] NoteHNO ID: [id number] Author: CHASTITY CRUZ APRN.NIRAV Service: ? Author Type: Nurse Practitioner Type: Progress Notes Filed: 11/02/2023 21:21 Note Text: [facility] [place] New Patient Evaluation CHIEF COMPLAINT: N/t Beryl Lincoln is a 28 year old accompanied by self. Consult was requested by Dr. Alfaro for an opinion regarding above CC. My final impression and recommendations will be communicated back to the requesting physician by way of the shared medical record or fax. October 30, 2023 HPI: Mr. Lincoln presents today secondary to issues of n/t. He states that sx began about 2-3 months ago. At the end of heavy lifts his face would feel off. Aylett mouth puckering. Tingling throughout whole face. Would do cardio later and this would resolve. About one month ago became very severe. Aylett face puckering and drooping on both sides. Hands were numb and tingling. Went home and sx worsened on drive home. Started to radiate to his chest. By the time he got home lost the ability to bend his fingers. EMS was called and sx started to resolve. BP was 170 at the time. EMS asked if he felt he needed to go to the ED but he chose not to go as he was scheduled with his PCP. Two weeks prior did have a bad case of food poisoning. Very dehydrated and malnourished. Lost 15-20lbs. PCP thought maybe exerting himself too much too quickly. Toned down weights and took time between lifting and no more issues at the gym. Then last sx happened when driving. Partial facial weakness bilaterally. No eye/forehead involvement. Tingling in hands and in stomach (middle of stomach near sternum). PCP told him to go to the ED. Had VS checked and lab work, EKG. No findings. Then Friday morning happened again after driving 20 min. Pulled over and called EMS. Was taken to [facility] and had CT and blood work, EKG, CXR. States doctor mentioned vitamin deficiency but did not check labs. Did get supplements the same day. Relaxed all weekend and no episodes; thought vit were working. Per ED note on 10/24/23: MDM / Disposition / Plan Patient is a 28-year-old male with no significant past medical history, presenting to the ED for complaints of facial numbness and tingling, droop, and hand numbness and tingling bilateral. Patient is alert and oriented x 3, sitting erect in cot, appears in no acute distress. Mildly anxious. PERRLA. No focal deficit. Respirations even unlabored, lung sounds clear. S1-S2 present without tachycardia. Abdomen soft, nontender nondistended. Moving all 4 extremities without any peripheral edema or numbness or tingling. Speaking in full sentences without difficulty. Patient had a ED workup completed showing negative VAISHALI, negative D-dimer normal normal magnesium. Unremarkable CBC and CMP. He had a chest x-ray showing no acute process as well as a CT brain which was benign. Patient was educated on results of diagnostics. Recommended outpatient blood pressure monitoring, follow-up with PCP. Also established patient with neurology as these are neurological symptoms without deficits or diagnostics without any acute event he should be reevaluated. Patient educated on potential causes such as vitamin deficit. Patient and friend at bedside are both agreeable to discharge plan and verbalized understanding. Then this Tues had blood work completed. And will be getting abd US. On his way back from work again he had similar sx; tingling in hands and pulling in stomach. Got out of the car and sx stopped then felt better. Longest episode was up to 40 min. Peak is about 5-10 min then gradually improves in about 25-30 min. Most recent was only a few min. Had B12 and folate checked. No vision changes, speech changes. Mouth drooping so does have some speech which is off. No focal weakness. Never had issues with legs. No b/b changes. No head injuires/neck injuries. No neuro ds. Mother with Lupus; dx 5-10 years ago. Mother also with stroke in early 40's. No family seizure hx. No diet changes. No travel out of the country. Had severe diarrhea during food poisoning. No thyroid ds, DM. No cardiac ds in family. No LOC. No cognitive changes or confusion during events. Pulse was 50 upon checking when he got home at one point. Was racing in ED. BP has been in 170's multiple times. No hx of elevated BP. Has been checking BP at home and usually 115-130. HR's between 50-60. Alcohol: Denies Tobacco: Denies Drug: Denies No past medical history on file. No past surgical history on file. No current outpatient medications on file prior to visit. No current facility-administered medications on file prior to visit. Social History Tobacco Use Smoking status: Never Smokeless tobacco: Never Substance Use Topics Drug use: Never ALLERGIES No Known Allergies Review of Systems: ENT: denies loss of hearing, vertigo Vision: denies blurring vison, double vision/diplopia Derm (more content not included)...[facility]03-28-2024 Hospital Discharge instructions Patient Education 10/23/2023 20:21:41 Paraesthesias Paraesthesias Paraesthesia is a burning or prickling sensation that is sometimes felt in the hands, arms, legs orfeet. It can also occur in other parts of the body. It can also feel like tingling or numbness, skin crawling, or itching. The feeling is not comfortable, but it is not painful. (The pins and needles feeling that happens when a foot or hand falls asleep is a temporary paraesthesia.) Paraesthesias that last or come and go may be caused by medical issues that need to be treated. These include stroke, a bulging disk pressing on a nerve, a trapped nerve, vitamin deficiencies, uncontrolled diabetes, alcohol abuse, or even certain medicines. Tests are often done. These tests may include blood tests, X-ray, CT (computerized tomography) scan, nerve conduction studies (NCS), or a muscle test (electromyography). Depending on the cause, treatment may include physical therapy. Home care Tell your healthcare provider about all medicines you take. This includes prescription and rknf-ouv-vbgbzis medicines, vitamins, and herbs. Ask if any of the medicines may be causing your problems. Don't make any changes to prescription medicines without talking to your healthcare provider first. You may be prescribed medicines to help relieve the tingling feeling or for pain. Take all medicines as directed. A numb hand or foot may be more prone to injury. To help protect it: oAlways use oven mitts. oTest water with an unaffected hand or foot. oUse caution when trimming nails. File sharp areas. oWear shoes that fit well to avoid pressure points, blisters, and ulcers. oInspect your hands and feet carefully (including the soles of your feet and between your toes) daily. If you see red areas, sores, or other problems, tell your healthcare provider. Follow-up care Follow up with your doctor, or as advised. You may need further testing or evaluation. When to seek medical advice Call your healthcare provider right away if any of the following occur: Numbness or weakness of the face, one arm, or one leg Slurred speech, confusion, trouble speaking, walking, or seeing Severe headache, fainting spell, dizziness, or seizure Chest, arm, neck, or upper back pain Loss of bladder or bowel control Open wound with redness, swelling, or pus [id number] [employer]. [address] [place] [address]. All rights reserved. This information is not intended as a substitute for professional medical care. Always follow yourhealthcare professional's instructions. Follow Up Care 10/23/2023 18:31:34 With:KAILYN CROWE Address: [address] [place] [phone] When:2-4 days [facility] 03-28-2024 Note Discharge Instructions Thank you for allowing [facility] to assist you with your healthcare needs. The following is importantdischarge information regarding your hospital visit. Diagnosis from Today's Visit Numbness/tingling marshall hands & bilateral face(resolved now) Paresthesia What to Do Next Instructions from Your Care Team No qualifying data available. Post Acute Orders No qualifying data available. You Need to Schedule the Following Appointments Follow Up with KAILYN CROWE When Within 2-4 days Where: [address] [place] [phone] Allergies NKA Medications Please ask your primary doctor or pharmacist before taking any other medication not listed, including over the counter drugs, herbal medications, vitamins and or supplements as they may interact withyour home medications. Please take this list to your next doctor s visit. Bring all medications you take, including over the counter medications, herbals and other supplements with you to your doctor s visit. Patients and families are reminded to discard old lists and to update any records with all medication providers or retail pharmacies. Education Materials Paraesthesias Paraesthesia is a burning or prickling sensation that is sometimes felt in the hands, arms, legs orfeet. It can also occur in other parts of the body. It can also feel like tingling or numbness, skin crawling, or itching. The feeling is not comfortable, but it is not painful. (The pins and needles feeling that happens when a foot or hand falls asleep is a temporary paraesthesia.) Paraesthesias that last or come and go may be caused by medical issues that need to be treated. These include stroke, a bulging disk pressing on a nerve, a trapped nerve, vitamin deficiencies, uncontrolled diabetes, alcohol abuse, or even certain medicines. Tests are often done. These tests may include blood tests, X-ray, CT (computerized tomography) scan, nerve conduction studies (NCS), or a muscle test (electromyography). Depending on the cause, treatment may include physical therapy. Home care Tell your healthcare provider about all medicines you take. This includes prescription and jamx-vor-vdtvyjj medicines, vitamins, and herbs. Ask if any of the medicines may be causing your problems. Don't make any changes to prescription medicines without talking to your healthcare provider first. You may be prescribed medicines to help relieve the tingling feeling or for pain. Take all medicines as directed. A numb hand or foot may be more prone to injury. To help protect it: oAlways use oven mitts. oTest water with an unaffected hand or foot. oUse caution when trimming nails. File sharp areas. oWear shoes that fit well to avoid pressure points, blisters, and ulcers. oInspect your hands and feet carefully (including the soles of your feet and between your toes) daily. If you see red areas, sores, or other problems, tell your healthcare provider. Follow-up care Follow up with your doctor, or as advised. You may need further testing or evaluation. When to seek medical advice Call your healthcare provider right away if any of the following occur: Numbness or weakness of the face, one arm, or one leg Slurred speech, confusion, trouble speaking, walking, or seeing Severe headache, fainting spell, dizziness, or seizure Chest, arm, neck, or upper back pain Loss of bladder or bowel control Open wound with redness, swelling, or pus [id number] [employer]. [address] [place] [address], [place] [address]. All rights reserved. This information is not intended as a substitute for professional medical care. Always follow yourhealthcare professional's instructions. Additional Information VACCINATE! IT SAVES LIVES! Members of the community who have not yet received the COVID-19 vaccine and would like to receive it can visit one of [facility] vaccine clinics. There are many vaccine clinic locations within the [facility]. For locations and available times, please visit www.gettheshot.coronavirus.[place].gov/. It is important to note that some COVID mobile vaccine clinics are held outdoors and may be canceled in rainy or stormy conditions. To learn more about pediatric vaccinations (ages 5-11), we invite you to visit the [facility] webpage. https://www.Get.coms.org/pages/7594-Uckfe-Rhgolwbistc-Qxkcquhujq-Gmjdi-Syx stions.htmlTo learn more about the COVID-19 vaccine, we invite you to visit the CDC website for a list of frequently asked questions. https://www.cdc.gov/coronavirus/2019-ncov/vaccines/faq.html [facility] Patient Portal Access Instructions: Stay connected with your healthcare team and access your personal medical information anytime with the [facility] Patient Portal. If you would like a full copy of your medical records please contact the [facility] Medical Records Department Friday through Friday between 8a.m. and 4:30p.m. Please follow the directions below to access the portal: 1.Access the email account you provided upon registration to the hospital.2.Look for an invitation email from [facility].3.Open the email and access the invitation link: Accept Invitation to [facility].Fill in the required duff to create your account. Sign into [email or web address] with your username and password that you created in the above steps to stay up to date. You can then view a summary of results, a summary of your visits, and the ability to download your summaries to your computer or send the information securely to a physician. Remember that your healthcare information is confidential, so carefully consider who you will allow to register on the [facility] Patient Portal for access to your information. You can also access the [facility] Patient Portal on the [employer] jose l. Simply click on Health Records under [place] and then click on the [employer] logo. HOW TO SAFELY DISPOSE OF PRESCRIPTION MEDICATIONS Please use one of the following methods to safely dispose of your unused medications. 1.Use a drug disposal kit: the drug disposal pouch allows you to safely discard your old and unuseddrugs. Ask your nurse to give you one when you are discharged.2.Visit a local take-back location: Many local pharmacies and police departments have programs that collect old and unwanted prescriptiondrugs. Call your local pharmacy or go to http://OrangeSoda.Mashed jobs/7N8Wz8m to find one close to you.3.Make use of household items: Use cat litter or old coffee grounds to dispose medications if other options arenot available. Mix your drugs with these household products, seal them in an airtight container andthrow it into the garbage. Call [facility]: [phone] to be sure your drugs can be disposed of in this way. Some medicines may require a different approach.4.Never flush your medications down the toilet. IF YOU HAVE BEEN PRESCRIBED AN OPIOIDS FOR PAIN If you have been prescribed an opioid (such as hydrocodone, oxycodone or morphine), it is critical to understand the possible side effects and risks of opioid pain medications. Even when taken as directed, opioids can have several side effects including: Tolerance, meaning you might need to take more of a medication for the same pain relief. Nausea, vomiting and/or constipation. Sleepiness, dizziness, dry mouth, confusion, depression or itching. Physical dependence, meaning you have withdrawal symptoms when a medication is stopped ? this can develop within a few days. KNOW YOUR RESPONSIBILITIES It is important to know exactly how much and how often to take the opioid pain medications you are prescribed. Never take opioids in higher amounts or more often than prescribed. Do not combine opioids with alcohol or other drugs that cause drowsiness, such as benzodiazepines, also known as benzos,including diazepam and alprazolam, muscle relaxants or sleep aids. Never sell or share prescriptionopioids. This is illegal. Store opioids in a secure place and out of reach of others (including children, family, friends and visitors). The last page(s) of this document has been signed and retained as a CHART COPY Signatures Patient Education Materials Paraesthesias Medication Leaflets My discharge plan and instructions have been reviewed and explained to me and I,LATONIA BERYL understand my current condition and have read and understand these discharge instructions. I have received a written copy of the plan/instructions. If I have questions, I am aware that I should contact my doctor. 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: Date/Time: Relationship to Patient: Witness Name/Signature: Date/Time: [facility]03-28-2024 NoteSinus bradycardia Probable right ventricular hypertrophy Borderline T abnormalities, inferior leads Electronic Signature: BAMBI ROJAS DO 10/23/2023 20:16:09[facility] 07-01-2023 Hospital Discharge instructions Patient Education 01/25/2023 14:01:17 Esophageal Foreign Body, Resolved Esophageal Blockage, Resolved The esophagus is the passage that carries food from the mouth to the stomach. You had a blockage inthe esophagus. This can happen after swallowing a large piece of food, taking a large pill, or swallowing foreign objects. If this is a recurring problem, it can be a sign of disease in the esophagus, such as inflammation (swelling and irritation) or scarring. If you did not have a special procedure (endoscopy) today to treat your condition, further testing will be needed to evaluate this problem. The blockage has cleared. You should be able to swallow normally again. Home care For the next 24 hours you may drink liquids and eat soft foods. You may have been given medicine today to prevent pain and help you relax. If so, you may feel drowsy for the next 4 [address] or operate dangerous equipment until you feel alert again. If your esophagus was blocked by food, be sure to cut solid food into small pieces before putting it into your mouth. Chew all foods well before swallowing. If your esophagus was blocked by an xabi-kdy-kajuvoj pill (such as a vitamin), avoid this size pillin the future. If it was blocked by a prescription medicine, ask your healthcare provider for another form of medicine. Follow-up care Follow up with your healthcare provider, or as advised. If you continue to have problems, contact your doctor or this facility for advice. If this is a recurring problem, talk with your healthcare provider about it. He or she may suggest having an endoscopy. This is a look in the esophagus with a small camera and light in a narrow, flexible tube. When to seek medical advice Call your healthcare provider right away if any of these occur: Unable to swallow Significant pain on swallowing Fever of 100.4 F (38 C) or higher, or as directed by your healthcare provider Call 911 Call 911 if any of the following occur: Chest pain or shortness of breath Vomiting blood (red or black) Blood in your stool (dark red or black color) [phone] [employer]. [address] [place] [address]. All rights reserved. This information is not intended as a substitute for professional medical care. Always follow yourhealthcare professional's instructions. Follow Up Care 01/25/2023 12:16:58 With:NUPUR ZARAGOZA MD Address: [address] [place] [address] [facility], [place] [phone]- [phone] When:2-4 days With:Call Physician Referral Address:Unknown When:2-4 days [facility] 07-01-2023 Emergency department Discharge summary Discharge Instructions Thank you for allowing [facility] to assist you with your healthcare needs. The following is importantdischarge information regarding your hospital visit. Diagnosis from Today's Visit Impacted esophageal foreign body Foreign body in throat What to Do Next Instructions from Your Care Team Please follow-up with GI. Discharge Return to Work, School, or Sports (Return to Work, School, or Sports) - Ordered -- 01/26/23, May return to: work, 01/25/23 14:09:00 EDT Post Acute Orders No qualifying data available. You Need to Schedule the Following Appointments Follow Up with NUPUR ZARAGOZA MD When Within 2-4 days Where: [address] [facility] [place] [address]- [phone] Follow Up with Call Physician Referral When Within 2-4 days Allergies NKA Medications Please ask your primary doctor or pharmacist before taking any other medication not listed, including over the counter drugs, herbal medications, vitamins and or supplements as they may interact withyour home medications. Please take this list to your next doctor s visit. Bring all medications you take, including over the counter medications, herbals and other supplements with you to your doctor s visit. Patients and families are reminded to discard old lists and to update any records with all medication providers or retail pharmacies. Education Materials Esophageal Blockage, Resolved The esophagus is the passage that carries food from the mouth to the stomach. You had a blockage inthe esophagus. This can happen after swallowing a large piece of food, taking a large pill, or swallowing foreign objects. If this is a recurring problem, it can be a sign of disease in the esophagus, such as inflammation (swelling and irritation) or scarring. If you did not have a special procedure (endoscopy) today to treat your condition, further testing will be needed to evaluate this problem. The blockage has cleared. You should be able to swallow normally again. Home care For the next 24 hours you may drink liquids and eat soft foods. You may have been given medicine today to prevent pain and help you relax. If so, you may feel drowsy for the next [address] operate dangerous equipment until you feel alert again. If your esophagus was blocked by food, be sure to cut solid food into small pieces before putting it into your mouth. Chew all foods well before swallowing. If your esophagus was blocked by an zgwj-yev-bbdzofl pill (such as a vitamin), avoid this size pillin the future. If it was blocked by a prescription medicine, ask your healthcare provider for another form of medicine. Follow-up care Follow up with your healthcare provider, or as advised. If you continue to have problems, contact your doctor or this facility for advice. If this is a recurring problem, talk with your healthcare provider about it. He or she may suggest having an endoscopy. This is a look in the esophagus with a small camera and light in a narrow, flexible tube. When to seek medical advice Call your healthcare provider right away if any of these occur: Unable to swallow Significant pain on swallowing Fever of 100.4 F (38 C) or higher, or as directed by your healthcare provider Call 911 Call 911 if any of the following occur: Chest pain or shortness of breath Vomiting blood (red or black) Blood in your stool (dark red or black color) [id number] [employer]. [address] [place] [address]. All rights reserved. This information is not intended as a substitute for professional medical care. Always follow yourhealthcare professional's instructions. Additional Information VACCINATE! IT SAVES LIVES! Members of the community who have not yet received the COVID-19 vaccine and would like to receive it can visit one of [facility] vaccine clinics. There are many vaccine clinic locations within the [facility]. For locations and available times, please visit www.[email or web address].[email or web address]/. It is important to note that some COVID mobile vaccine clinics are held outdoors and may be canceled in rainy or stormy conditions. To learn more about pediatric vaccinations (ages 5-11), we invite you to visit the [facility] webpage. https://www.[facility].org/pages/0936-Qvguk-Bemnqucduut-Yquispkops-Ozytj-Vlu stions.htmlTo learn more about the COVID-19 vaccine, we invite you to visit the CDC website for a list of frequently asked questions. https://www.cdc.gov/coronavirus/2019-ncov/vaccines/faq.html [facility] Patient Portal Access Instructions: Stay connected with your healthcare team and access your personal medical information anytime with the [facility] Patient Portal. If you would like a full copy of your medical records please contact the [facility] Medical Records Department Friday through Friday between 8a.m. and 4:30p.m. Please follow the directions below to access the portal: 1.Access the email account you provided upon registration to the [facility].2.Look for an invitation email from [facility].3.Open the email and access the invitation link: Accept Invitation to [facility]4.Fill in the required duff to create your account. Sign into [email or web address] with your username and password that you created in the above steps to stay up to date. You can then view a summary of results, a summary of your visits, and the ability to download your summaries to your computer or send the information securely to a physician. Remember that your healthcare information is confidential, so carefully consider who you will allow to register on the [facility] Patient Portal for access to your information. You can also access the [facility] Patient Portal on the Surv[employer]. Simply click on Health Records under [place] and then click on the [employer] logo. HOW TO SAFELY DISPOSE OF PRESCRIPTION MEDICATIONS Please use one of the following methods to safely dispose of your unused medications. 1.Use a drug disposal kit: the drug disposal pouch allows you to safely discard your old and unuseddrugs. Ask your nurse to give you one when you are discharged.2.Visit a local take-back location: Many local pharmacies and police departments have programs that collect old and unwanted prescriptiondrugs. Call your local pharmacy or go to http://OrangeSoda.Mashed jobs/7F9Sv4b to find one close to you.3.Make use of household items: Use cat litter or old coffee grounds to dispose medications if other options arenot available. Mix your drugs with these household products, seal them in an airtight container andthrow it into the garbage. Call [facility]: [phone] to be sure your drugs can be disposed of in this way. Some medicines may require a different approach.4.Never flush your medications down the toilet. IF YOU HAVE BEEN PRESCRIBED AN OPIOIDS FOR PAIN If you have been prescribed an opioid (such as hydrocodone, oxycodone or morphine), it is critical to understand the possible side effects and risks of opioid pain medications. Even when taken as directed, opioids can have several side effects including: Tolerance, meaning you might need to take more of a medication for the same pain relief. Nausea, vomiting and/or constipation. Sleepiness, dizziness, dry mouth, confusion, depression or itching. Physical dependence, meaning you have withdrawal symptoms when a medication is stopped ? this can develop within a few days. KNOW YOUR RESPONSIBILITIES It is important to know exactly how much and how often to take the opioid pain medications you are prescribed. Never take opioids in higher amounts or more often than prescribed. Do not combine opioids with alcohol or other drugs that cause drowsiness, such as benzodiazepines, also known as benzos,including diazepam and alprazolam, muscle relaxants or sleep aids. Never sell or share prescriptionopioids. This is illegal. Store opioids in a secure place and out of reach of others (including children, family, friends and visitors). The last page(s) of this document has been signed and retained as a CHART COPY Signatures Patient Education Materials Esophageal Foreign Body, Resolved Medication Leaflets My discharge plan and instructions have been reviewed and explained to me and I,BERYL LINCOLN understand my current condition and have read and understand these discharge instructions. I have received a written copy of the plan/instructions. If I have questions, I am aware that I should contact my doctor. 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 You had a blockage inthe esophagus. This can happen after swallowing a large piece of food, taking a large pill, or swallowing foreign objects. If this is a recurring problem, it can be a sign of disease in the esophagus, such as inflammation (swelling and irritation) or scarring. If you did not have a special procedure (endoscopy) today to treat your condition, further testing will be needed to evaluate this problem. The blockage has cleared. You should be able to swallow normally again. Home care For the next 24 hours you may drink liquids and eat soft foods. You may have been given medicine today to prevent pain and help you relax. If so, you may feel drowsy for the next [address] or operate dangerous equipment until you feel alert again. If your esophagus was blocked by food, be sure to cut solid food into small pieces before putting it into your mouth. Chew all foods well before swallowing. If your esophagus was blocked by an jcrv-yuj-etmpoeq pill (such as a vitamin), avoid this size pillin the future. If it was blocked by a prescription medicine, ask your healthcare provider for another form of medicine. Follow-up care Follow up with your healthcare provider, or as advised. If you continue to have problems, contact your doctor or this facility for advice. If this is a recurring problem, talk with your healthcare provider about it. He or she may suggest having an endoscopy. This is a look in the esophagus with a small camera and light in a narrow, flexible tube. When to seek medical advice Call your healthcare provider right away if any of these occur: Unable to swallow Significant pain on swallowing Fever of 100.4 F (38 C) or higher, or as directed by your healthcare provider Call 911 Call 911 if any of the following occur: Chest pain or shortness of breath Vomiting blood (red or black) Blood in your stool (dark red or black color) [id number] [employer]. [address] [place] [address]. All rights reserved. This information is not intended as a substitute for professional medical care. Always follow yourhealthcare professional's instructions. Follow Up Care 01/24/2023 20:15:54 With:CHAYO LEVY MD Address: [address] [place] [id number] [phone] When:2-4 days [facility] 06-30-2023 Note Discharge Instructions Thank you for allowing [facility] to assist you with your healthcare needs. The following is importantdischarge information regarding your hospital visit. Diagnosis from Today's Visit Foreign body in throat What to Do Next Instructions from Your Care Team Liquid diet for the next 24 hours. Cut your food up into smaller pieces please and follow-up with gastroenterology specialist. No qualifying data available. Post Acute Orders No qualifying data available. You Need to Schedule the Following Appointments Follow Up with CHAYO LEVY MD When Within 2-4 days Where: [address] [place] [address]- [phone] Allergies NKA Medications Please ask your primary doctor or pharmacist before taking any other medication not listed, including over the counter drugs, herbal medications, vitamins and or supplements as they may interact withyour home medications. Please take this list to your next doctor s visit. Bring all medications you take, including over the counter medications, herbals and other supplements with you to your doctor s visit. Patients and families are reminded to discard old lists and to update any records with all medication providers or retail pharmacies. Education Materials Esophageal Blockage, Resolved The esophagus is the passage that carries food from the mouth to the stomach. You had a blockage inthe esophagus. This can happen after swallowing a large piece of food, taking a large pill, or swallowing foreign objects. If this is a recurring problem, it can be a sign of disease in the esophagus, such as inflammation (swelling and irritation) or scarring. If you did not have a special procedure (endoscopy) today to treat your condition, further testing will be needed to evaluate this problem. The blockage has cleared. You should be able to swallow normally again. Home care For the next 24 hours you may drink liquids and eat soft foods. You may have been given medicine today to prevent pain and help you relax. If so, you may feel drowsy for the next 4 [address] or operate dangerous equipment until you feel alert again. If your esophagus was blocked by food, be sure to cut solid food into small pieces before putting it into your mouth. Chew all foods well before swallowing. If your esophagus was blocked by an ffvv-qrc-yttgito pill (such as a vitamin), avoid this size pillin the future. If it was blocked by a prescription medicine, ask your healthcare provider for another form of medicine. Follow-up care Follow up with your healthcare provider, or as advised. If you continue to have problems, contact your doctor or this facility for advice. If this is a recurring problem, talk with your healthcare provider about it. He or she may suggest having an endoscopy. This is a look in the esophagus with a small camera and light in a narrow, flexible tube. When to seek medical advice Call your healthcare provider right away if any of these occur: Unable to swallow Significant pain on swallowing Fever of 100.4 F (38 C) or higher, or as directed by your healthcare provider Call 911 Call 911 if any of the following occur: Chest pain or shortness of breath Vomiting blood (red or black) Blood in your stool (dark red or black color) [id number] [employer]. [address] [place] [address]. All rights reserved. This information is not intended as a substitute for professional medical care. Always follow yourhealthcare professional's instructions. Additional Information VACCINATE! IT SAVES LIVES! Members of the community who have not yet received the COVID-19 vaccine and would like to receive it can visit one of [facility] vaccine clinics. There are many vaccine clinic locations within the [facility]. For locations and available times, please visit www.[email or web address].[place].gov/. It is important to note that some COVID mobile vaccine clinics are held outdoors and may be canceled in rainy or stormy conditions. To learn more about pediatric vaccinations (ages 5-11), we invite you to visit the [facility] webpage. https://www.[facility].org/pages/9961-Kizbl-Dtjqwghzrvx-Eccqkjbrwm-Kxbur-Ifc stions.htmlTo learn more about the COVID-19 vaccine, we invite you to visit the CDC website for a list of frequently asked questions. https://www.cdc.gov/coronavirus/2019-ncov/vaccines/faq.html [facility] Patient Portal Access Instructions: Stay connected with your healthcare team and access your personal medical information anytime with the [facility] Patient Portal. If you would like a full copy of your medical records please contact the [facility] Medical Records Department Friday through Friday between 8a.m. and 4:30p.m. Please follow the directions below to access the portal: 1.Access the email account you provided upon registration to the [facility].2.Look for an invitation email from [facility].3.Open the email and access the invitation link: Accept Invitation to [facility]4.Fill in the required duff to create your account. Sign into [email or web address] with your username and password that you created in the above steps to stay up to date. You can then view a summary of results, a summary of your visits, and the ability to download your summaries to your computer or send the information securely to a physician. Remember that your healthcare information is confidential, so carefully consider who you will allow to register on the [facility] Patient Portal for access to your information. You can also access the [facility] Patient Portal on the [employer] jose l. Simply click on Health Records under [place] and then click on the [employer] logo. HOW TO SAFELY DISPOSE OF PRESCRIPTION MEDICATIONS Please use one of the following methods to safely dispose of your unused medications. 1.Use a drug disposal kit: the drug disposal pouch allows you to safely discard your old and unuseddrugs. Ask your nurse to give you one when you are discharged.2.Visit a local take-back location: Many local pharmacies and police departments have programs that collect old and unwanted prescriptiondrugs. Call your local pharmacy or go to http://OrangeSoda.Mashed jobs/0B9Rj9n to find one close to you.3.Make use of household items: Use cat litter or old coffee grounds to dispose medications if other options arenot available. Mix your drugs with these household products, seal them in an airtight container andthrow it into the garbage. Call [facility]: [phone] to be sure your drugs can be disposed of in this way. Some medicines may require a different approach.4.Never flush your medications down the toilet. IF YOU HAVE BEEN PRESCRIBED AN OPIOIDS FOR PAIN If you have been prescribed an opioid (such as hydrocodone, oxycodone or morphine), it is critical to understand the possible side effects and risks of opioid pain medications. Even when taken as directed, opioids can have several side effects including: Tolerance, meaning you might need to take more of a medication for the same pain relief. Nausea, vomiting and/or constipation. Sleepiness, dizziness, dry mouth, confusion, depression or itching. Physical dependence, meaning you have withdrawal symptoms when a medication is stopped ? this can develop within a few days. KNOW YOUR RESPONSIBILITIES It is important to know exactly how much and how often to take the opioid pain medications you are prescribed. Never take opioids in higher amounts or more often than prescribed. Do not combine opioids with alcohol or other drugs that cause drowsiness, such as benzodiazepines, also known as benzos,including diazepam and alprazolam, muscle relaxants or sleep aids. Never sell or share prescriptionopioids. This is illegal. Store opioids in a secure place and out of reach of others (including children, family, friends and visitors). The last page(s) of this document has been signed and retained as a CHART COPY Signatures Patient Education Materials Esophageal Foreign Body, Resolved Medication Leaflets My discharge plan and instructions have been reviewed and explained to me and I,BERYL LINCOLN understand my current condition and have read and understand these discharge instructions. I have received a written copy of the plan/instructions. If I have questions, I am aware that I should contact my doctor. 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: Date/Time: Relationship to Patient: Witness Name/Signature: [facility]Time: [facility] No data available for this section [facility] Evaluation + Plan note Future Appointments Appointment Date:11/05/2023 08:00:00 AM Scheduled Provider:KAILYN CROWE Location:[facility] Appointment Type:PC DRAFTER (CAD) ELECTRICAL [facility] Evaluation + Plan note Future Appointments Appointment Date:10/28/2023 08:30:00 AM Scheduled Provider:KAILYN CROWE Location:[facility] Appointment Type:SHAHNAZ OV [facility] Evaluation + Plan note Future Appointments Appointment Date:11/14/2023 02:15:00 PM Scheduled Provider: Location:[facility] Appointment Type:CV DRAFTER (CAD) ELECTRICAL Future Scheduled Tests Radiology* US Abdomen Complete 10/28/23 [facility] Evaluation + Plan note Future Appointments Appointment Date:12/02/2023 08:00:00 AM Scheduled Provider: Location:[facility] Appointment Type:Echo - Echocardiogram Adult [facility] Evaluation + Plan note Future Appointments Appointment Date:12/23/2024 09:00:00 AM Scheduled Provider:FRANCO PLAZA [facility] Appoint[facility] Type:CV OV Future Scheduled Tests Laboratory* Glucose Level 05/24/24 * Lipid Profile 05/24/24 Radiology* XR Chest 2 Views (PA & Lateral) 11/08/24 [facility] Evaluation note* Diagnosis Facial weakness- Primary Demyelinating disease of central nervous system (HCC) Demyelinating disease of central nervous system, unspecified Transient cerebral ischemia, unspecified type Chest tightness Other chest pain Tingling Disturbance of skin sensation [facility] Penis pain- Primary Unspecified disorder of penis Blood in stool Hemorrhoids, unspecified hemorrhoid type [facility] Diagnosis Demyelinating disease of central nervous system (HCC) Demyelinating disease of central nervous system, unspecified Transient cerebral ischemia, unspecified type Facial weakness Tingling Disturbance of skin sensation [facility] Facial weakness- Primary Chest tightness Other chest pain Tingling Disturbance of skin sensation documented [facility]* Diagnosis Sore throat- Primary Acute pharyngitis URI, acute Acute upper respiratory infections of unspecified site [facility] Diagnosis Viral bronchitis- Primary Acute bronchitis [facility] No data available for this section [facility] Progress note No data available for this section [facility] Reason for referral (narrative)* Outpatient Procedure (Routine) - Authorized Specialty Diagnoses / Procedures Referred By Contac t Referred To Contact [facility] Diagnoses Facial weakness Procedures EPIL EEG ROUTINE ELECTROENCEPHALOGRAM REC COMA/SLEEP ONLY Chastity Cruz, POKER PROP PLAYER.STEEPING PRESS TENDER [address] [place] [address] [facility] [address] [id number] Referral ID Status Reason Start Date Expiration Date Visits Requested Visits Authorized [id number] Authorized Auto-Generat ed Referral 10/31/2023 10/30/2024 1 1 * MRI/CT (Routine) - Authorized Specialty Diagnoses / Procedures Referred By Contac t Referred To Contact [facility] Diagnoses Demyelinating disease of central nervous system (HCC) Transient cerebral ischemia, unspecified type Facial weakness Tingling Procedures MRI BRAIN WO/W IVCON MRI BRAIN BRAIN STEM W/O W/CONTRAST MATERIAL Chastity Cruz APRN.STEEPING PRESS TENDER [address] [place] [address] [facility] Referral ID Status Reason Start Date Expiration Date Visits Requested Visits Authorized [id number] Authorized Auto-Generat ed Referral 10/31/2023 11/29/2024 1 1 [facility] Reason for Referral Specialty Diagnoses / Procedures Referred By Contac t Referred To Contact [facility] Diagnoses Demyelinating disease of central nervous system (HCC) Transient cerebral ischemia, unspecified type Facial weakness Tingling Procedures MRI BRAIN WO/W IVCON MRI BRAIN BRAIN STEM W/O W/CONTRAST MATERIAL Chastity Cruz APRN.STEEPING PRESS TENDER [address] [place] [address] [place] [address] Referral ID Status Reason Start Date Expiration Date V isits Requested Visits Authorized [id number] Closed Auto-Generate d Referral 10/31/2023 11/29/2024 1 1 Summary Purpose Family History No Family History Records Found Advance Directives No Advanced Directives Records FoundNo Advanced Directives Records FoundNo Advanced Directives Records FoundNo Advanced Directives Records Found Additional Source Comments Patient Care team informatio n (unrecognized section and content) Edge Bander Hand Relationship Specialty Start Date End Date Kailyn Crowe CNP [address] [place] [address] PCP - General Family Medicine 10/24/23 Edge Bander Hand Relationship Specialty Start Date End Date Kailyn Crowe CNP [address] [place] [id number] PCP - General Family Medicine 10/24/23 Edge Bander Hand Relationship Specialty Start Date End Date Kailyn Crowe CNP [address] [place] [address] PCP - General Family Medicine 10/24/23 Edge Bander Hand Relationship Specialty Start Date End Date Kailyn Crowe CNP [address] [place] [id number] PCP - General Family Medicine 10/24/23 [employer]ander Hand Relationship Specialty Start Date End Date Kailyn Crowe CNP [address] [place] [id number] PCP - General Family Medicine 10/24/23 [employer]ander Hand Relationship Specialty Start Date End Date Kailyn Crowe CNP [address] [place] [id number] PCP - General Family Medicine 10/24/23 Edge [employer]ander Hand Relationship Specialty Start Date End Date Kailyn Crowe CNP [address] [place] [id number] PCP - General Family Medicine 10/24/23 Source Comments (unrecognize d section and content) In the event this informatio n is protected by the Federal Confidentiality of Alcohol and Drug Abuse Patient Records regulations: The Federal rules restrict any use of the information to criminally investigate or prosecute any alcohol or drug abuse patient.[facility] the event this information is protected by the Federal Confidentiality of Alcohol and Drug Abuse Patient Records regulations: The Federal rules restrict any use of the information to criminally investigate or prosecute any alcohol or drug abuse patient.[facility] HospitalIn the event this information is protected by the Federal Confidentiality of Alcohol and Drug Abuse Patient Records regulations: The Federal rules restrict any use of the information to criminally investigate or prosecute any alcohol or drug abuse patient.[facility] HospitalIn the event this information is protected by the Federal Confidentiality of Alcohol and Drug Abuse Patient Records regulations: The Federal rules restrict any use of the information to criminally investigate or prosecute any alcohol or drug abuse patient.[facility] HospitalIn the event this information is protected by the Federal Confidentiality of Alcohol and Drug Abuse Patient Records regulations: The Federal rules restrict any use of the information to criminally investigate or prosecute any alcohol or drug abuse patient.[facility] HospitalIn the event this information is protected by the Federal Confidentiality of Alcohol and Drug Abuse Patient Records regulations: The Federal rules restrict any use of the information to criminally investigate or prosecute any alcohol or drug abuse patient.[facility] HospitalIn the event this information is protected by the Federal Confidentiality of Alcohol and Drug Abuse Patient Records regulations: The Federal rules restrict any use of the information to criminally investigate or prosecute any alcohol or drug abuse patient.[facility] Reason for Visit (unrecogniz ed section and content) Reason Comments New Patient ED Follow up Reason Comments Penis/Scrotum Problem burning x 2 days a nd blood in stool x this am Specialty Diagnoses / Procedures Referred By Eddie t Referred To Contact MR IMAGING Diagnoses Demyelinating disease of central nervous system (HCC) Transient cerebral ischemia, unspecified type Facial weakness Tingling Procedures MRI BRAIN WO/W IVCON MRI BRAIN BRAIN STEM W/O W/CONTRAST MATERIAL Chastity Cruz, LIZBETH.[employer] [address] [place] [address] [place] [id number] Referral ID Status Reason Start Date Expiration Date V isits Requested Visits Authorized [id number] Closed Auto-Generate d Referral 10/31/2023 11/29/2024 1 1 Reason Comments Follow Up Reason Comments Cough Cough, SAMANO, ST and co ngestion x 3 days Reason Comments Cough Chest congestion, SO B, tightness in chest x4 days (unrecognized sect ion and content) No Status Records FoundNo Status Records FoundNo Status Records FoundNo Status Records Found INFORMATION SOURCE (unrecogn ized section and content) DATE CREATED AUTHOR 01/28/2024 [facility] DATE CREATED AUTHOR AUTHOR'S ORGANIZ ATION 10/02/2024 [facility] [place] DATE CREATED AUTHOR AUTHOR'S ORGANIZ ATION 12/01/2024 [facility] DATE CREATED AUTHOR AUTHOR'S ORGANIZ ATION 02/10/2025 [facility] FOR RECORDS PERTAINING TO PATIENTS WHO ARE OR HAVE BEEN ENROLLED IN A CHEMICAL DEPENDENCY/SUBSTANCEABUSE PROGRAM, SOME INFORMATION MAY BE OMITTED. This clinical summary was aggregated from multiple sources. Caution should be exercised in using it in the provision of clinical care. This summary normalizes information from multiple sources, and as a consequence, information in this document may materially change the coding, format and clinical context of patient data. In addition, data may be omitted in some cases. CLINICAL DECISIONS SHOULD BE BASED ON THE PRIMARY CLINICAL RECORDS. [facility]. provides no warranty or guarantee of the accuracy or completeness of information in this document.
[2025-02-12 09:11] LABS: Hematocrit 45.0 % (40-54); Hemoglobin 16.2 g/dL (13.0-16.5); Immature Granulocytes Count 0.030 X10^3/uL (0.0-0.0); Mean Corp Hgb Conc 36.0 g/dL (32-36); Mean Corpuscular Volume 84.0 fL (80-94); Mean Platelet Vol. 8.9 fl (6.2-12.0); NRBC Flagged by Analyzer 0 % (0-5); Platelet Count 177 K/mm3 (150-450); RBC Distribution Width CV 12.3 % (11.6-14.6); RBC Distribution Width SD 37.1 fl (35.1-43.9); Red Blood Count 5.36 M/mm3 (4.6-6.2); White Blood Count 6.8 K/mm3 (4.4-11.0)
[2025-02-12 10:35] LABS: AST(SGOT) 45 U/L (<=37); Alanine Aminotransfer ALT/SGPT 31 U/L (<=46); Albumin, Serum 4.5 g/dL (3.5-5.0); Alkaline Phosphatase 60 U/L (40-129); Anion Gap 12 (5-15); BUN 13 mg/dL (4-19); BUN/Creat Ratio 12.6 RATIO (10-20); Calcium,Total 9.6 mg/dL (7.6-11.0); Carbon Dioxide 23.3 mmol/L (21.0-32.0); Chloride 103 mmol/L (98-108); Cholesterol 248 mg/dL (<=200); Globulin 2.7 g/dL (2.2-4.2); Glucose 100 mg/dL (70-99); Low Density Lipoprotein Calc. 168 mg/dL; Potassium 4.3 mmol/L (3.3-5.1); Triglycerides 192 mg/dL; Very Low Density Lipoprotein 38 mg/dL (5-40); cholesterol:hdl ratio screen 5.89
[2025-02-16 08:09] LABS: Bluegrass, Kentucky 13.60 kU/L (Class IV); Cat Hair/Dander, Standard 13.90 kU/L (Class IV); Cedar, Mountain 0.73 kU/L (Class II); Cockroach, American 0.16 kU/L (Class 0/I); Dog Epithelia 2.60 kU/L (Class III); Egg, Whole 0.23 kU/L (Class 0/I); Elm, American White 3.23 kU/L (Class III); Hazelnut Tree 4.20 kU/L (Class IV); Hickory, White 3.14 kU/L (Class III); Mulberry, White 0.90 kU/L (Class II); Mussels <0.10 kU/L (Class 0); Oak, White 6.02 kU/L (Class IV); Pigweed, Rough 0.90 kU/L (Class II); Plantain, English 2.71 kU/L (Class III); Ragweed, Short/Common 6.87 kU/L (Class IV); Sheep Sorrel(Dock) 1.85 kU/L (Class III); Sycamore, American 6.07 kU/L (Class IV)
== END | disposition home or self-care (01) ==
PROVIDERS: PCP Family Medicine; Referring Provider Family Medicine; Visit Provider Family Medicine
DX: Z00.00 Encounter for general adult medical examination without abnormal findings (principal); J45.909 Unspecified asthma, uncomplicated; Z13.220 Encounter for screening for lipoid disorders; Z13.1 Encounter for screening for diabetes mellitus
CPT/HCPCS: 36415; 80053; 80061; 85025; 86003; 86005